=== PATIENT | male | born 1985 | race Caucasian/White ===

== ENCOUNTER 2023-06-02 14:22 | Outpatient (REF) | payer BC, SELFPAY ==
[2023-06-02 15:06] LABS: SARS-CoV-2 Ag NEGATIVE (NEGATIVE)
[2023-06-03 11:24] LABS: SARS-CoV-2 NAA DETECTED (NOT DETECTE)
== END 2023-06-02 14:23 | disposition home or self-care (01) ==
LOC: LAB 14:22
PROVIDERS: PCP Family Medicine; Visit Provider Family Medicine
DX: Z20.822 Contact with and (suspected) exposure to COVID-19 (principal); U07.1 COVID-19
CPT/HCPCS: 87635; 87811

== ENCOUNTER 2024-02-20 17:53 | Emergency (ER) | payer BC, SELFPAY ==
[2024-02-20 17:57] VITALS: BP 157/112; PULSE 75; TEMP 36.7; O2SAT 98; BMI 36.2
[2024-02-20 18:02] VITALS: BP 142/90
--- NOTE | 2024-02-20 18:08 | PC.NURSE ---
pt has bump on L side of cheek/face since friday. saw dr camara naresh and was prescribed doxy and cefdinir. pt states it's still not getting better and would like it to be lanced,. there is no head' or drainage on area. denies hitting head
--- OUTSIDE RECORDS SUMMARY | 2024-02-20 18:11 | XMS_ITS | CCD ---
Author Organization [facility] Care Team Providers Care Form Drafter Name Role Phone DR NOMI PAZ Primary Care Unavailable GERMÁN CARR Admitting Unavailable COSTA, DR NIX Consulting Unavailable GERMÁN CARR Attending Unavailable Dejuan Jin Consulting Unavailable AMIE, DR MOSHER Attending Unavailable AMIE, DR MOSHER Consulting Unavailable AMIE, DR MOSHER Primary Care Unavailable AMIE, DR MOSHER Admitting Unavailable AMIE, DR MOSHER Primary Care Unavailable SAM, DR FLORENCE Admitting Unavailable SAM, DR FLORENCE Attending Unavailable SAM, DR FLORENCE Consulting Unavailable MD Nomi Paz Primary Care Provider [phone] DO Margarito Medrano Emergency Provider NON STAFF Attending Provider Unavailable MD Nomi Paz Primary Care Provider [phone] DO Margarito Medrano Emergency Provider Carmen [facility] Amalia Kline Emergency Provider [phone] Amalia Morales Admitting Unavailable Amalia Morales Attending Unavailable Nomi Paz Primary Care Unavailable Celeste Anglin Admitting Unavailable Celeste Anglin Attending Unavailable Nomi Paz Primary Care Unavailable Medications Current Medications Medication Drug Class(es) Dates Sig (Normalized) Sig (Original) amoxicillin 875 mg / clavulanate 125 mg oral tablet (1 source) Penicillin-class Antibacterial Start: 09-19-2022 take 1 tablet by mouth twice daily Amoxicillin-Pot Clavulanate Active 1 TAB PO Twice daily September 19, 2022 12:00am clonazePAM 0.5 mg oral tablet (3 sources) Benzodiazepine Start: 07-09-2022 Clonazepam Active 0.5 MG PO As Directed July 09, 2022 1:00am FLUoxetine 10 mg oral capsule (3 sources) Serotonin Reuptake Inhibitor Start: 07-09-2022 take 10 mg by mouth once daily Fluoxetine Active 10 MG PO Daily July 09, 2022 1:00am Start: 07-09-2022 Fluoxetine Act efrem MG July 09, 2022 12:00am lisinopril 20 mg oral tablet (3 sources) Angiotensin Converting Enzyme Inhibitor Start: 07-09-2022 take 20 mg by mouth once daily Lisinopril Active 20 MG PO Daily July 09, 2022 1:00am Problems Active Problems Problem Classification Problem Date Documented Da te Episodic/Chronic Anxiety disorders (3 sources) Anxiety; Translations: [Anxiety disorder, unspecified] 07-09-2022 Chronic E Codes: Natural/environment (1 source) Dog bite - wound; Translations: [Bitten by dog, initial encounter] 09-19-2022 Episodic Other lower respiratory disease (1 source) Hypoxemia; Translations: [Hypoxemia] Onset: 09-10-2023 Episodic Unclassified (3 sources) CONTACT W/AND (SUSP) EXPOS COVID-19; Translations: [CONTACT W/AND (SUSP) EXPOS COVID-19] Onset: 02-15-2022 Unclassified (1 source) Puncture wound without foreign body of left forearm, initial encounter; Translations: [Puncture wound without foreign body of left forearm, initial encounter] Onset: 09-19-2022 Past or Other Problems Problem Classification Problem Date Documented Da te Episodic/Chronic Nonspecific chest pain (4 sources) Chest pain, unspecified; Translations: [Other chest pain] Onset: 06-09-2021 Episodic Other aftercare (1 source) 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; Translations: [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 DRUG THERAPY] Onset: 06-11-2021 Episodic Other circulatory disease (1 source) Elevated blood-pressure reading, without diagnosis of hypertension; Translations: [ELEVATED BP READING W/O DX HTN] Onset: 03-24-2021 Episodic Other nutritional; endocrine; and metabolic disorders (4 sources) Abnormal weight gain; Translations: [ABNORMAL WEIGHT GAIN] Onset: 03-16-2021 Episodic Unclassified (1 source) CONTACT W/AND (SUSP) EXPOS COVID-19; Translations: [CONTACT W/AND (SUSP) EXPOS COVID-19] Onset: 02-14-2022 Results Test Name Value Interpretation Reference Range Facility XR chest 2V*on 09-10-2023 XR chest 2V* [facility] Main [address] [address] XRay Report Signed Patient: Eduardo Yousif MR#: [id number] 984 : 1985 Acct:[id number] Age/Sex: 38 / M ADM Date: 09/10/23 Loc: XDUCLY Room: Type: [facility] CLI Attending Dr: Celeste TREVIÑO Copies to: KAMILA Prado Ordering Provider: KAMILA Prado Date of Service: 09/10/23 XR/XR chest 2V*: R09.02 - Hypoxemia PA AND LATERAL CHEST: CLINICAL HISTORY: Sore throat, fever and headache. Decreased pulse ox. COMPARISON: None There is no focal parenchymal consolidation, effusion or pneumothorax. The cardiac, hilar and mediastinal silhouettes are within normal limits. There is no vascular congestion. The visualized bony thorax is intact. There is minor endplate spurring. XR/XR chest 2V* IMPRESSION: NO ACUTE CARDIOPULMONARY ABNORMALITY. Impression dictated by: Jane Mac M.D.09/10/2023 10:54 AM Dictation Location: [place] [address] Transcribed By: [facility] 09/10/23 1054 Dictated By: Jane Mac MD 09/10/23 1052 Signed By: 09/10/23 1054 Normal [facility] XR forearm LT 2V*on 09-20-19 XR forearm LT 2V* [facility] Main [address] [address] XRay Report Signed Patient: Eduardo Yousif MR#: [id number] 984 : 1985 Acct:[id number] Age/Sex: 37 / M ADM Date: 09/19/22 Loc: ER Room: Type: [facility] ER Attending Dr: Copies to: FRANCES Castillo Ordering Provider: FRANCES Castillo Date of Service: 09/19/22 XR/XR forearm LT 2V*: Animal Bite 2 views of the left forearm plain film COMPARISON:None HISTORY:Dogbite of the left forearm ACUTE FINDINGS:None DEGENERATIVE CHANGE:Unremarkable SOFT TISSUE FINDINGS:Soft tissue swelling. No radiodense foreign body. JOINT EFFUSION:None POSTOP CHANGES:None BONY MINERALIZATION:Adequ ate XR/XR forearm LT 2V* IMPRESSION:Soft tissue swelling. Impression dictated by: Henry Encinas M.D.09/19/2022 3:43 PM Dictation Location: [facility]--03 Transcribed By: [facility] 09/19/22 154 Dictated By: Henry Encinas DO 09/19/22 154 Signed By: 09/19/22 154 [facility] XR hand LT min 3V*on 023 XR hand LT min 3V* [facility] [place] [address] XRay Report Signed Patient: Eduardo Yousif MR#: [id number] 984 : 1985 Acct:[id number] Age/Sex: 37 / M ADM Date: 09/19/22 Loc: ER Room: Type: [facility] ER Attending Dr: Copies to: FRANCES Castillo Ordering Provider: FRANCES Castillo Date of Service: 09/19/22 XR/XR hand LT min 3V*: Animal Bite 3 views of the left hand plain film COMPARISON:None HISTORY:Dog bite involving the left hand ACUTE FINDINGS:None DEGENERATIVE CHANGE:Unremarkable SOFT TISSUE FINDINGS:Unremarkabl e JOINT EFFUSION: None POSTOP CHANGES:None BONY MINERALIZATION:Adequ ate XR/XR hand LT min 3V* IMPRESSION:Unremarka ble exam Impression dictated by: Henry Encinas M.D.09/19/2022 3:42 PM Dictation Location: [facility]03 Transcribed By: [facility] 09/19/22 154 Dictated By: Henry Encinas DO 09/19/22 154 Signed By: 09/19/22 154 [facility] Covid-19 PCR (CVDTB)on 02-04 SARS-CoV-2 (COVID-19) RNA HELEN+probe Ql (Unsp spec) Not detected Normal NOT DETECTED [facility] Comment on above: Result Comment: This test is not yet approved or cleared by the [place] FDA. When there are no FDA-approved or cleared tests available, and other criteria are met, FDA can make tests available under an emergency access mechanism called an Emergency Use Authorization (EUA). The EUA for this test is supported by the [place] of Health and Human Service's (HHS's) declaration that circumstances exist to justify the emergency use of in vitro diagnostics for the detection and/or diagnosis of the virus that causes COVID-19. This EUA will remain in effect (meaning this test can be used) for the duration of the COVID-19 declaration justifying emergency of IVDs, unless it is terminated or revoked by FDA (after which the test may no longer be used). When diagnostic testing is negative, the possibility of a false negative should be considered in the context of a patient's recent exposures and the presence of clinical signs and symptoms consistent with SARS-CoV-2. Performed By: #### C VDTB #### [facility] [address] [place] [address] Dr. Staci Rodriguez CBC AUTO DIFFon 06-09-2021 BASO # 0.1 103/ul Normal 0.0-0.1 [facility] Comment on above: Performed By: #### C BC #### [facility] [address] [place] [address] Dr. Staci Rodriguez Basophils/100 WBC (Bld) 0.6 % Normal 0.2-2.[address] [facility] Comment on above: Performed By: #### C BC #### [facility] [address] [place] [address] Dr. Staci Rodriguez EO # 0.2 103/ul Normal 0.0-0.[address] [facility] Comment on above: Performed By: #### C BC #### [facility] [address] [place] [address] Dr. Staci Rodriguez Eosinophils/100 WBC (Bld) 1.4 % Normal 0.9-7.[address] [facility] Comment on above: Performed By: #### C BC #### [facility] [address] [place] [address] Dr. Staci Rodriguez Erythrocyte distribution width (RBC) [Ratio] 12.2 % Normal 11.0-15.0 [facility] Comment on above: Performed By: #### C BC #### [facility] [address] [place] [address] Dr. Staci Rodriguez Hematocrit (Bld) [Volume fraction] 43.2 % Normal 42.0-54.0 [facility] Comment on above: Performed By: #### C BC #### [facility] [address] [place] [address] Dr. Staci Rodriguez Hemoglobin (Bld) [Mass/Vol] 14.6 g/dL Normal 14.0-18.0 [facility] Comment on above: Performed By: #### C BC #### [facility] [address] [place] [address] Dr. Staci Rodriguez IG # 0.04 10e3/ul Critically high 0.00-0.03 [facility] Comment on above: Performed By: #### C BC #### [facility] [address] [place] [address] Dr. Staci Rodriguez IG % 0.3 % Normal 0.0-0.5 [facility] Comment on above: Performed By: #### C BC #### [facility] [address] [place] [address] Dr. Staci Rodriguez LYMPH # 4.3 103/ul Critically high 1.2-3.8 [facility] Comment on above: Performed By: #### C BC #### [facility] [address] [place] [address] Dr. Staci Rodriguez Lymphocytes/100 WBC (Bld) 34.1 % Normal 20.5-60.0 [facility] Comment on above: Performed By: #### C BC #### [facility] [address] [place] [address] Dr. Staci Rodriguez MANUAL DIFF REQ NO Normal [facility] Comment on above: Performed By: #### C BC #### [facility] [address] [place] [address] Dr. Staci Rodriguez MCH (RBC) [Entitic mass] 28.2 pg Normal 25.9-34.0 [facility] Comment on above: Performed By: #### C BC #### [facility] [address] [address] [address] Staci Rodriguez MCHC (RBC) [Mass/Vol] 33.8 g/dL Normal 29.9-35.2 [facility] Comment on above: Performed By: #### C BC #### [facility] [address] [place] [address] Dr. Staci Rodriguez MCV (RBC) [Entitic vol] 83.6 fL Normal 80.0-94.0 [facility] Comment on above: Performed By: #### C BC #### [facility] [address] [place] [address] Dr. Staci Rodriguez MONO # 1.2 103/ul Critically high 0.3-0.8 [facility] Comment on above: Performed By: #### C BC #### [facility] [address] [place] [address] Dr. Staci Rodriguez Monocytes/100 WBC (Bld) 9.3 % Normal 1.7-12.0 [facility] Comment on above: Performed By: #### C BC #### [facility] [address] [place] [address] Dr. Staci Rodriguez NEUT # 6.8 103/ul Critically high 1.4-6.5 The [facility] Comment on above: Performed By: #### C BC #### [facility] [address] [place] [address] Dr. Staci Rodriguez Neutrophils/100 WBC (Bld) 54.3 % Normal 43.0-75.[address] [facility] Comment on above: Performed By: #### C BC #### [facility] [address] [place] [address] Dr. Staci Rodriguez Platelet mean volume (Bld) [Entitic vol] 9.1 fL Critically low 9.5-13.5 [facility] Comment on above: Performed By: #### C BC #### [facility] [address] [place] [address] Dr. Staci Rodriguez PLT 309 103/ul Normal 150-450 [facility] Comment on above: Performed By: #### C BC #### [facility] [address] [place] [address] Dr. Staci Rodriguez RBC 5.17 106/ul Normal 4.70-6.10 [facility] Comment on above: Performed By: #### C BC #### [facility] [address] [place] [address] Dr. Staci Rodriguez WBC 12.6 103/ul Critically high 4.0-11.0 [facility] Comment on above: Performed By: #### C BC #### [facility] [address] [place] [address] Dr. Staci Rodriguez D-DIMERon 06-09-2021 D-DIMER <0.19 Normal 0.19-0.50 [facility] Comment on above: Performed By: #### D DIM #### [facility] [address] [place] [address] Dr. Staci Rodriguez D-DIMER COMMENTS SEE BELOW Normal [facility] Comment on above: Result Comment: Incr eases in D-Dimer concentration observed with thromboembolic events can be variable due to localization, size, and age of the thrombus. Therefore, a thromboembolic event cannot be diagnosed with certainty on the basis of the reference range. D-Dimers may also be elevated for a variety of disorders including: advanced age, , coronary disease, cancer, liver disease, infection, inflammation, hematoma, DIC, trauma, post-surgery, diabetes, thrombolytic or anticoagulant therapy, stress, and generalized hospitalization. Performed By: #### D DIM #### [facility] [address] [place] [address] Dr. Staci Rodriguez PROF CHEM 8 (BAS METB)on Anion gap [Moles/Vol] 12.2 mmol/L Normal [facility] Comment on above: Performed By: #### H OSCARPN, BMP #### [facility] [address] [place] [address] Dr. Staci Rodriguez Calcium [Mass/Vol] 9.5 mg/dL Normal 8.4-10.2 [facility] Comment on above: Performed By: #### H STROPN, BMP #### [facility] [address] [place] [address] [address] Staci Rodriguez Chloride [Moles/Vol] 102 mmol/L Normal 98-107 [facility] Comment on above: Performed By: #### H STROPN, BMP #### [facility] [address] [place] [address] [address] Staci Rodriguez CO2 [Moles/Vol] 28.1 mmol/L Normal 22.0-30.0 [facility] Comment on above: Performed By: #### H STROPN, BMP #### [facility] [address] [place] [address] [address] Staci Rodriguez Creatinine [Mass/Vol] 1.12 mg/dL Normal 0.66-1.25 [facility] Comment on above: Performed By: #### H STROPN, BMP #### [facility] [address] [address] [address] Staci Rodriguez EGFR-AF BAHAMIAN >60 Normal >=60 [facility] Comment on above: Performed By: #### H STROPN, BMP #### [facility] [address] [address] [address] Staci Rodriguez EGFR-NON AF BAHAMIAN >60 Normal >=60 [facility] Comment on above: Performed By: #### H STROPN, BMP #### [facility] [address] [address] [address] Staci Rodriguez Glucose [Mass/Vol] 92 mg/dL Normal 74-106 [facility] Comment on above: Performed By: #### H STROPN, BMP #### [facility] [address] [address] [address] Staci Rodriguez Potassium [Moles/Vol] 3.3 mmol/L Critically low 3.4-5.0 [facility] Comment on above: Performed By: #### H STROPN, BMP #### [facility] [address] [address] [address] Staci Rodriguez Sodium [Moles/Vol] 139 mmol/L Normal 137-145 [facility] Comment on above: Performed By: #### H STROPN, BMP #### [facility] [address] [address] [address] Staci Rodriguez Urea nitrogen [Mass/Vol] 10.0 mg/dL Normal 9.0-20.0 [facility] Comment on above: Performed By: #### H ANNAMARIA, BMP #### [facility] [address] [address] [address] Staci Rodriguez Urea nitrogen/Creatinine [Mass ratio] 8.9 mg/mg Normal [facility] Comment on above: Performed By: #### H ANNAMARIA, BMP #### [facility] [address] [address] [address] Staci Rodriguez TROPONIN, HIGH SENSITIVITYon 06-09-2021 HSTROP 38.4 pg/mL Normal 4.0-42.2 [facility] Comment on above: Result Comment: CUT- OFF POINTS HAVE BEEN ESTABLISHED BASED ON THE FOURTH UNIVERSAL DEFINITIONS OF MYOCARDIAL INFARCTION. THE UPPER REFERENCE LIMIT (URL) OF TROPONIN, DEFINED THE 99TH PERCENTILE OF cTnI DISTRIBUTION IN A REFERENCE POPULATION, HAS BEEN CONFIRMED THE DECISION THRESHOLD FOR [place] DIAGNOSIS. Performed By: #### H ANNAMARIA, BMP #### [facility] [address] [place] [address] [address] Staci Rodriguez GLYCOHEMOGLOBIN A1Con 2020 ADA RECOMMENDATION ADA THERAPEUTIC TARGET 6.0 - 7.0 ACTION SUGGESTED > 7.0 Normal [facility] Comment on above: Performed By: #### A 1C #### [facility] [address] [id number] Efraín Jane Glucose [Mass/Vol] 111 mg/dL Normal [facility] Comment on above: Performed By: #### A 1C #### [facility] [address] [id number] Efraín Jane HbA1c (Bld) [Mass fraction] 5.5 % Normal <=6.0 [facility] Comment on above: Performed By: #### A 1C #### [facility] [address] [id number] Efraín Lara LIPID PROFILEon 03-16-2021 CHOL-HDL RATIO NORM SEE BELOW Normal [facility] Comment on above: Result Comment: 3.3 - 4.4 LOW RISK 4.4 - 7.1 AVERAGE RISK 7.1 - 11.0 MODERATE RISK >11.0 HIGH RISK Performed By: #### T JEFFREY CMP, LIPID ####[facility] [address] [place], [place] [address]Yqpljn Jane Cholesterol [Mass/Vol] 219 mg/dL Critically high <=[address] [facility] Comment on above: Performed By: #### T JEFFREY CMP, LIPID ####[facility] [address] [place], [place] [address]Pfyggs Jane Cholesterol in HDL [Mass/Vol] 45 mg/dL Normal [facility] Comment on above: Performed By: #### T JEFFREY CMP, LIPID ####[facility] [address] [place], [place] [address]Sxsrpo Jane Cholesterol in LDL [Mass/Vol] 156.4 mg/dL Normal [facility] Comment on above: Performed By: #### T JEFFREY CMP, LIPID ####[facility] [address] [place], [place] [address]Erzubn Jane Cholesterol.total/Cho lesterol in HDL [Mass ratio] 4.9 {ratio} Normal [facility] Comment on above: Performed By: #### T JEFFREY CMP, LIPID ####[facility] [address] [place], [place] [address]Vyprly Jane HDL NORMAL > or = 60 mg/dl - LOW CARDIOVASCULAR RISK <40 mg/dl - HIGH CARDIOVASCULAR RISK Normal [facility] Comment on above: Performed By: #### T JEFFREY CMP, LIPID ####[facility] [address] [place], [place] [address]Lpccpq Jane LDL CALC NORMAL SEE BELOW Normal The [facility] Comment on above: Result Comment: <100 mg/dl OPTIMAL 100 - 129 mg/dl NEAR OR ABOVE OPTIMAL 130 - 159 mg/dl BORDERLINE HIGH 160 - 189 mg/dl HIGH >190 mg/dl VERY HIGH Performed By: #### T JEFFREY, CMP, LIPID ####[facility] [address] [place], [place] [address]Zlyqnw Jane Triglyceride [Mass/Vol] 88 mg/dL Normal <=150 [facility] Comment on above: Performed By: #### T SH, CMP, LIPID ####[facility] [address] [place], [place] [address]Dtbzeq Jane VLDL CALC 17.6 mg/dL Normal [facility] Comment on above: Performed By: #### T JEFFREY, CMP, LIPID ####[facility] [address] [place] [id number] Gamboaen PROF 14(COMP METB)on 021 Albumin [Mass/Vol] 4.3 g/dL Normal 3.5-5.0 [facility] Comment on above: Performed By: #### T JEFFREY CMP, LIPID #### [facility] [address] [phone] Efraín Jane Albumin/Globulin [Mass ratio] 1.0 {ratio} Normal [facility] Comment on above: Performed By: #### T JEFFREY CMP, LIPID #### [facility] [address] [phone] Efraín Jane ALP [Catalytic activity/Vol] 74 U/L Normal 38-126 [facility] Comment on above: Performed By: #### T JEFFREY CMP, LIPID #### [facility] [address] [place] [address] Efraín Jane ALT [Catalytic activity/Vol] 50 U/L Normal 21-72 [facility] Comment on above: Performed By: #### T JEFFREY, CMP, LIPID #### [facility] [address] [phone] Efraín Jane Anion gap [Moles/Vol] 14.0 mmol/L Normal [facility] Comment on above: Performed By: #### T SH, CMP, LIPID #### [facility] [address] [place], [place] [id number] Efraín Jane AST [Catalytic activity/Vol] 27 U/L Normal 17-59 [facility] Comment on above: Performed By: #### T SH, CMP, LIPID #### [facility] [address] [place], [place] [id number] Efraín Jane Bilirubin [Mass/Vol] 0.7 mg/dL Normal 0.2-1.[address] [facility] Comment on above: Performed By: #### T JEFFREY CMP, LIPID #### [facility] [address] [place] [address] Efraín Jane Calcium [Mass/Vol] 9.0 mg/dL Normal 8.4-10.2 [facility] Comment on above: Performed By: #### T JEFFREY, CMP, LIPID #### [facility] [address] [place] [address] Efraín Jane Chloride [Moles/Vol] 103 mmol/L Normal 98-[address] [facility] Comment on above: Performed By: #### T JEFFREY CMP, LIPID #### [facility] [address] [place] [address] Efraín Jane CO2 [Moles/Vol] 27.7 mmol/L Normal 22.0-30.0 [facility] Comment on above: Performed By: #### T JEFFREY, CMP, LIPID #### [facility] [address] [place] [address] Efraín Jane Creatinine [Mass/Vol] 1.15 mg/dL Normal 0.66-1.[address] [facility] Comment on above: Performed By: #### T JEFFREY CMP, LIPID #### [facility] [address] [place] [address] Efraín Jane EGFR-AF BAHAMIAN >60 Normal >=60 [facility] Comment on above: Performed By: #### T JEFFREY, CMP, LIPID #### [facility] [address] [place] [address] Efraín Jane EGFR-NON AF BAHAMIAN >60 Normal >=[address] [facility] Comment on above: Performed By: #### T JEFFREY, CMP, LIPID #### [facility] [address] [place] [address] Efraín Jane Globulin (S) [Mass/Vol] 4.2 g/dL Normal [facility] [facility] Comment on above: Performed By: #### T SH, CMP, LIPID #### [facility] [address] [place] [address] Efraín Jane Glucose [Mass/Vol] 86 mg/dL Normal 74-106 [facility] Comment on above: Performed By: #### T JEFFREY CMP, LIPID #### [facility] [address] [place] [address] Efraín Jane Potassium [Moles/Vol] 3.7 mmol/L Normal 3.4-5.0 [facility] Comment on above: Performed By: #### T JEFFREY CMP, LIPID #### [facility] [address] [place] [address] Efraín Jane Protein [Mass/Vol] 8.5 g/dL Critically high 6.1-8.2 [facility] Comment on above: Performed By: #### T JEFFREY CMP, LIPID #### [facility] [address] [place] [address] Efraín Jane Sodium [Moles/Vol] 141 mmol/L Normal 137-145 [facility] Comment on above: Performed By: #### T JEFFREY CMP, LIPID #### [facility] [address] [place] [address] Efraín Jane Urea nitrogen [Mass/Vol] 16.0 mg/dL Normal 9.0-20.0 [facility] Comment on above: Performed By: #### T JEFFREY CMP, LIPID #### [facility] [address] [place] [address] Efraín Jane Urea nitrogen/Creatinine [Mass ratio] 13.9 mg/mg Normal [facility] Comment on above: Performed By: #### T JEFFREY CMP, LIPID #### [facility] [address] [place] [address] Efraín Jane TSHon 03-16-2021 TSH 0.650 uIU/mL Normal 0.470-4.680 [facility] Comment on above: Performed By: #### T JEFFREY CMP, LIPID #### [facility] [address] [place] [address] Efraín Jane TSH RANGE SEE BELOW Normal [facility] Comment on above: Result Comment: <0.3 4 UIU/ml HYPERTHYROID 0.34-5.60 UIU/ml EUTHYROID >5.60 UIU/ml HYPOTHYROID Performed By: #### T SH, CMP, LIPID #### [facility] [address] [place] [address] Efraín Jane UA RANDOMon 03-16-2021 Bilirubin Ql (U) Negative Normal NEGATIVE [facility] Comment on above: Performed By: #### U A #### [facility] [address] [place] [address] Efraín Jane Clarity (U) CLEAR Normal CLEAR [facility] Comment on above: Performed By: #### U A #### [facility] [address] [place] [address] Efraín Jane Color (U) YELLOW Normal YELLOW [facility] Comment on above: Performed By: #### U A #### [facility] [address] [place] [address] Efraín Jane Glucose Ql (U) Negative Normal NEGATIVE [facility] Comment on above: Performed By: #### U A #### [facility] [address] [place] [address] Efraín Jane Hemoglobin Ql (U) TRACE-LYSED Abnormal NEGATIVE [facility] Comment on above: Performed By: #### U A #### [facility] [address] [place] [address] Efraín Jane Ketones Ql (U) TRACE Abnormal NEGATIVE [facility] Comment on above: Performed By: #### U A #### [facility] [address] [place] [address] Efraín Jane LEUKOCYTES Negative Normal NEGATIVE [facility] Comment on above: Performed By: #### U A #### [facility] [address] [place] [address] Efraín Jane Nitrite Ql (U) Negative Normal NEGATIVE [facility] Comment on above: Performed By: #### U A #### [facility] [address] [place] [address] Efraín Jane pH (U) 6.0 [pH] Normal 5-[address] [facility] Comment on above: Performed By: #### U A #### [facility] [address] [place], [place] [id number] Efraín Lara SPEC GRAVITY >=1.030 Abnormal 1.005-<=1.025 The [facility] Comment on above: Performed By: #### U A #### [facility] [address] [address] Efraín Lara UA PROTEIN Negative Normal NEGATIVE/ TRACE [facility] Comment on above: Performed By: #### U A #### [facility] [address] [id number] Efraín Lara Urobilinogen Qn (U) 0.2 {[place]'U}/dL Normal 0.2 - 1. 0 [facility] Comment on above: Performed By: #### U A #### [facility] [address] [place] [address] Efraín Lara Release of Informationon Release of Information [id number] [facility] Coding Summaryon 01-18-2019 Coding Summary CODING DATE: 01/18/2019 [place] STATUS: Home PAYOR: Richard Horan ADMIT DX: REASON FOR VISIT DX: R11.2 Nausea with vomiting, unspecified R19.7 Diarrhea, unspecified FINAL DX: PRINCIPAL: R11.2 Nausea with vomiting, unspecified SECONDARY: D72.829 Elevated white blood cell count, unspecified R42 Dizziness and giddiness R19.7 Diarrhea, unspecified PROCEDURES DOCTOR NAME DATE NOTE: The code number assigned matches the documented diagnosis and / or procedure in the patient's chart. However, the narrative phrase printed from the coding software may appear abbreviated, or result in slightly different terminology. Coded By: Jose A Barr Date Saved: 01/18/2019 12:05 pm [facility] Coding Summary CODING DATE: 01/18/2019 [place] STATUS: Home PAYOR: Richard Cross APC DESCRIPTION 5733 Level 3 Minor Procedures ADMIT DX: REASON FOR VISIT DX: R11.2 Nausea with vomiting, unspecified R19.7 Diarrhea, unspecified FINAL DX: PRINCIPAL: R11.2 Nausea with vomiting, unspecified SECONDARY: D72.829 Elevated white blood cell count, unspecified R42 Dizziness and giddiness R19.7 Diarrhea, unspecified PYMT PROC APC STAT DESCRIPTION DOCTOR NAME DATE NOTE: The code number assigned matches the documented diagnosis and / or procedure in the patient's chart. However, the narrative phrase printed from the coding software may appear abbreviated, or result in slightly different terminology. Coded By: Bharath Barr' Date Saved: 01/18/2019 12:01 pm Normal [facility] CBC w/ Auto Diffon 9 Erythrocyte distribution width (RBC) [Ratio] 13.3 % Normal 11.5-15.0 [facility] Comment on above: Performed By: #### 1 [id number], [id number], 9517938, 1083566, 419395714, [id number] #### [facility] (DEFAULT) [address] [place] [address] 89983 Hematocrit (Bld) [Volume fraction] 45.2 % Normal 34.8-51.9 [facility] Comment on above: Performed By: #### 1 [id number], [id number], 5415279, 0353356, 848710774, [id number] #### [facility] (DEFAULT) [address] [place] [address] 98656 Hemoglobin (Bld) [Mass/Vol] 15.8 g/dL Normal 11.8-17.7 [facility] Comment on above: Performed By: #### 1 [id number], [id number], 1151986, 3269967, 925990776, [id number] #### [facility] (DEFAULT) [address] [place] [address] 24811 Man Diff? Manual Normal [facility] Comment on above: Performed By: #### 1 [id number], [id number], 5517697, 7451283, 259887119, [id number] #### [facility] (DEFAULT) [address] [place] [address] 31002 MCH (RBC) [Entitic mass] 28 pg Normal 24-34 [facility] Comment on above: Performed By: #### 1 [id number], [id number], 0549513, 8807516, 180523522, 8061346049 #### [facility] (DEFAULT) [address] [place] [address] 09008 MCHC (RBC) [Mass/Vol] 35 g/dL Normal 26-37 [facility] Comment on above: Performed By: #### 1 [id number], [id number], 6320288, 9573578, 625121555, [id number] #### [facility] (DEFAULT) [address] [place] [address] MCV (RBC) [Entitic vol] 80 fL Low 81-100 [facility] Comment on above: Performed By: #### 1 [id number], [id number], 5610750, 6897155, 228294295, [id number] #### [facility] (DEFAULT) [address] [place] [address] Platelet mean volume (Bld) [Entitic vol] 9.1 fL Normal 6.3-10.2 [facility] Comment on above: Performed By: #### 1 [id number], 4771352733, 9550744, 3612783, 605368649, 5271223572 #### [facility] (DEFAULT) [address] [place] [address] Platelets (Bld) [#/Vol] 320 x10 Normal 138-427 [facility] Comment on above: Performed By: #### 1 [id number], 0585253268, 6949464, 6780781, 319858826, 8210682349 #### [facility] (DEFAULT) [address] [place] [address] RBC (Bld) [#/Vol] 5.68 x10 High 3.70-5.30 [facility] Comment on above: Performed By: #### 1 [id number], 3644305954, 2413422, 0044653, 191076844, 4634554099 #### [facility] (DEFAULT) [address] [place] [address] 22891 WBC (Bld) [#/Vol] 28.5 x10 [facility] Comment on above: Performed By: #### 1 [id number], 7994469484, 5570703, 2938557, 635684537, 7477720011 #### [facility] (DEFAULT) [address] [place], [place] [address] CMP Standardon 01-12-2019 eGFR Non AA >60 [facility] Comment on above: Performed By: #### 1 [id number], 7172681611, 1966934, 3602630, 146494316, 4067629150 #### [facility] (DEFAULT) [address] [place] [address] eGFR AA >60 [facility] Comment on above: Result Comment: Coloring Checker davida Kidney disease could be indicated at eGFRs of less than 60 ml/min/1.73m2. Kidney Failure is indicated at less than 15 ml/min/1.73m2 Performed By: #### 1 [id number], 1265802516, 1519833, 7124522, 900139309, 6638897286 #### [facility] (DEFAULT) [address] [place] [address] 24579 Albumin [Mass/Vol] 4.9 g/dL Normal 3.5-5.0 [facility] Comment on above: Performed By: #### 1 [id number], 5213192508, 2342261, 5924610, 827077894, 1623069166 #### [facility] (DEFAULT) [address] [place] [address] 28728 Albumin/Globulin [Mass ratio] 1.2 {ratio} Low 1.4-2.6 [facility] Comment on above: Performed By: #### 1 [id number], 3861589902, 6127347, 4553829, 320246761, 7398256752 #### [facility] (DEFAULT) [address] [place] [address] 73563 Alk Phos 75 IU/L Normal 32-91 [facility] Comment on above: Performed By: #### 1 [id number], 6527217835, 5371112, 9982170, 042266183, 5271672927 #### [facility] (DEFAULT) [address] [place] [address] 12448 ALT/SGPT 37.0 IU/L Normal 17.0-63.0 [facility] Comment on above: Performed By: #### 1 [id number], 9795906611, 1589650, 6494062, 748659859, 1583040520 #### [facility] (DEFAULT) [address] [place] [address] 29874 Anion gap [Moles/Vol] 8.0 mmol/L Normal 5.0-19.0 [facility] Comment on above: Performed By: #### 1 [id number], 4885193645, 8068477, 3754644, 962221518, 3179215351 #### [facility] (DEFAULT) [address] [place] [address] 08509 AST/SGOT 24 IU/L Normal 15-41 [facility] Comment on above: Performed By: #### 1 [id number], 8980705787, 6345250, 1688931, 281756280, 9977859816 #### [facility] (DEFAULT) [address] [place] [address] 28975 Bili Total <0.1 Low 0.3-1.2 [facility] Comment on above: Performed By: #### 1 [id number], 1031714233, 6807060, 9965807, 567851914, 2026529157 #### [facility] (DEFAULT) [address] [place] [address] 88763 Calcium [Mass/Vol] 9.3 mg/dL Normal 8.9-10.3 [facility] Comment on above: Performed By: #### 1 [id number], 3344039524, 3057908, 9543206, 669832399, 6936715454 #### [facility] (DEFAULT) [address] [place] [address] 93353 Chloride [Moles/Vol] 111 mmol/L Normal 101-111 [facility] Comment on above: Performed By: #### 1 [id number], 3884130802, 5457627, 7625113, 427746541, 9635386687 #### [facility] (DEFAULT) [address] [place] [address] 07213 CO2 [Moles/Vol] 24 mmol/L Normal 21-32 [facility] Comment on above: Performed By: #### 1 [id number], 7666271031, 7837766, 0455673, 989649599, 0110262735 #### [facility] (DEFAULT) [address] [place] [address] Creatinine [Mass/Vol] 1.21 mg/dL Normal 0.90-1.30 [facility] Comment on above: Performed By: #### 1 [id number], 6152043631, 5930983, 9488279, 711510883, 1314982436 #### [facility] (DEFAULT) [address] [place] [address] 96312 Globulin (S) [Mass/Vol] 4.1 g/dL Normal 1.5-4.3 [facility] Comment on above: Performed By: #### 1 [id number], 7716980083, 9545683, 5327369, 070747537, 3897825046 #### [facility] (DEFAULT) [address] [place] [address] Glucose [Mass/Vol] 121.0 mg/dL High 74.0-118.[address] [facility] Comment on above: Performed By: #### 1 [id number], 3727549737, 6609153, 8178105, 407748437, 5216206312 #### [facility] (DEFAULT) [address] [place] [address] 95847 Osmolality [Osmolality] 279 mOsm/L [facility] Comment on above: Performed By: #### 1 [id number], 1190841723, 1179985, 4738586, 805958601, 2145481669 #### [facility] (DEFAULT) [address] [place] [address] 92515 Potassium [Moles/Vol] 4.3 mmol/L Normal 3.6-5.1 [facility] Comment on above: Performed By: #### 1 [id number], 4227124033, 8102248, 3122954, 171203276, 2735831442 #### [facility] (DEFAULT) [address] [place] [address] 73933 Protein [Mass/Vol] 9.0 g/dL High 6.5-8.1 [facility] Comment on above: Performed By: #### 1 [id number], 6079929988, 6688494, 3001459, 247360219, 1296712939 #### [facility] (DEFAULT) [address] [place] [address] 46860 Sodium [Moles/Vol] 139.0 mmol/L Normal 136.0-144.0 [facility] Comment on above: Performed By: #### 1 [id number], 2893873239, 2874482, 4606060, 863793415, 3190026650 #### [facility] (DEFAULT) [address] [place] [address] 84097 Urea nitrogen [Mass/Vol] 14 mg/dL Normal 8-26 [facility] Comment on above: Performed By: #### 1 [id number], 5208495284, 6472901, 9416788, 932861757, 6667218632 #### [facility] (DEFAULT) [address] [place] [address] 60375 Urea nitrogen/Creatinine [Mass ratio] 12.0 mg/mg Normal 4.6-16.2 [facility] Comment on above: Performed By: #### 1 [id number], 7923521568, 1052930, 8525329, 612631715, 5615494472 #### [facility] (DEFAULT) [address] [place] [address] 55066 ED Clinical Summaryon 2018 ED Clinical Summary [facility] - Emergency Department [address] [place] [address]327 ED Clinical Summary PERSON INFORMATION Name: PRAVEEN YOUSIF Age: 33 Years Sex: MALE : [birth year] MRN: Acct#: Visit Reason: Diarrhea; Emesis; VOMITING, NAUSEA Arrival: 01/12/19 10:49:00 Discharge: 01/12/19 13:40:00 LOS: 000 02:51 Check In: 01/12/19 10:49:00 Checkout:01/12/19 13:40:00 Address: [place] [address] PCP: NOMI PAZ PROVIDER INFORMATION Provider Role Assigned Unassigned Ernst DA SILVA, Ju ED Nurse 01/12/19 10:50:54 John EDGE, Abebe Martel ED PA 01/12/19 10:57:08 01/12/19 10:59:14 Kole Dodd ED PA 01/12/19 10:59:35 VITALS INFORMATION Vital Sign Triage Latest Temperature Tympanic Temperature Temporal Artery Pulse Rate 89 bpm 89 bpm O2 Sat 100 % 100 % Respiratory Rate 18 br/min 18 br/min Blood Pressure 163 mmHg/108 mmHg 163 mmHg/108 mmHg MEDICAL INFORMATION Medications Given: Medication Dose Route ondansetron 4 mg IV Push sodium chloride 10 mL IV Flush Allergy Information: No known allergies PHYSICIAN DOCUMENTATION DISCHARGE INFORMATION: Discharge Disposition: Home Discharge Location: Home PATIENT EDUCATION INFORMATION Instructions: Diarrhea, Adult; Nausea and Vomiting, Adult Follow-Up: With: Address: When: NOMI AMIE [address] [facility] [address] [id number] Business (1) Within 3 to 5 days Comments: Diagnosis is history of nausea vomiting and diarrhea without abdominal discomfort, elevated white blood cell count. He reports going to a job location, and feeling nauseous on the way there, and having episodes of nausea and vomiting, and diarrhea. You felt lightheaded, may have a component of mild dehydration, the EMS gave you a liter of IV fluids, we gave you almost 1500 cc, and the lightheadedness resolved, We provided you with medication help with nausea, your blood work is overall negative for acute process requiring intervention in regards to your electrolytes, your CBC has normal blood count, white count was elevated, but most likely from the nausea and vomiting experienced prior to coming to the emergency department. You're not having any fevers, no abdominal pain. urinalysis is overall negative. Keep hydrated. Provided you with a prescription for medication help with nausea take as prescribed. Eat light, over the next 24-48 hours, soups, Jell-O, avoid heavy meals. Follow-up with your own primary care provider in the next 3-5 days, Return to the emergency room for worsening symptoms or concerns, onset of abdominal pain, worsening nausea or vomiting, spiking fevers, acute shortness of breath or chest pain, or any questions DIAGNOSIS: Diarrhea; Leukocytosis; Lightheadedness; Nausea and vomiting Patient Understands: Yes - Patient/family/careg iver verbalizes understanding of instructions given Comment: Normal [facility] ED Note - Physicianon 2018 ED Note - Physician Patient: PRAVEEN YOUSIF Age: 33 years Sex: MALE : 87 Associated Diagnoses: Nausea and vomiting; Lightheadedness; Diarrhea; Leukocytosis Author: Kole Dodd Basic Information Time seen: Date & time 01/12/19 11:00:00. History source: Patient. Arrival mode: Ambulance. History limitation: None. History of Present Illness Patient is a 33-year-old male with no medical history, who presents to the emergency department with an episode of nausea vomiting, followed by diarrhea, patient brought in by EMS, patient seen in room 7. 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 He continued to have nausea, EMS was activated presents now for evaluation. Patient complains of nausea, but denies abdominal pain, shortness of breath, chest pain, dizziness, double vision or blurry vision, hematuria or dysuria. There is no syncope. Review of Systems Constitutional symptoms: No fever, no chills. Skin symptoms: No rash, no abrasions. Eye symptoms: No discharge, no diplopia, no blurred vision. Respiratory symptoms: No shortness of breath, Cardiovascular symptoms: No chest pain, Gastrointestinal symptoms: Negative except as documented in HPI. Genitourinary symptoms: Negative except as documented in HPI. Health Status Allergies: No allergies have been recorded.. Past Medical/ Family/ Social History Medical history: No active or resolved past medical history items have been selected or recorded.. Surgical history: No active procedure history items have been selected or recorded.. Family history: No family history items have been selected or recorded.. Social history: Social & Psychosocial Habits No Data Available . Problem list: No qualifying data available . Physical Examination General: Alert, no acute distress. Vital Signs Skin: Warm, dry. Head: Normocephalic, atraumatic. Neck: Supple, trachea midline. Eye: Extraocular movements are intact, normal conjunctiva. Ears, nose, mouth and throat: Patient's mouth is dry. Cardiovascular: +S1, S2 Regular. Respiratory: Lungs are clear to auscultation, respirations are non-labored, breath sounds are equal. Gastrointestinal: Patient's abdomen is auscultated,there are bowel sounds present throughout, there is no guarding, there is no rebound. There is no pulsatile mass palpated, no abdominal bruit auscultated. Back: No CVA tenderness bilaterally. Neurological: Alert and oriented to person, place, time, and situation, No focal neurological deficit observed. Psychiatric: Cooperative. Medical Decision Making Differential Diagnosis: Nausea, vomiting, diarrhea. Orders Launch Orders Laboratory: Troponin I (Order): Blood, Stat collect, 01/12/19 11:04 EDT, Lab Collect CMP Standard (Order): Blood, Stat collect, 01/12/19 11:03 EDT, Lab Collect CBC w/ Auto Diff (Order): Blood, Stat collect, 01/12/19 11:03 EDT, Lab Collect Pharmacy: Zofran (Order): 4 mg, IV Push, Once Sodium Chloride 0.9% intravenous solution (Order): 250 mL, 999 mL/hr, IV, NOW Cardiovascular: EKG (Order): 01/12/19 11:03 EDT, Abnormal EKG, No, Launch Orders Laboratory: Urinalysis with Culture, if indicated Standard (Order): Urine, Routine collect, 01/12/19 11:45 EDT, Nurse collect, Launch Orders Laboratory: Troponin I (Order): Blood, Stat collect, 01/12/19 12:16 EDT, Lab Collect. Electrocardiogram: EKG from 01/12/19, shows sinus rhythm, ventricular rate 93/m, purulent 73 ms, QRS duration is 96, QRS inversion in lead 3 the T wave, but otherwise no acute ST segment elevation or depression that I can appreciate. Results review: Lab results : Lab Flowsheet 01/12/19 11:04 EDT Sodium Level 139.0 mmol/L Potassium Level 4.3 mmol/L Chloride Level 111 mmol/L CO2 24 mmol/L Anion Gap 8.0 mmol/L Glucose Level 121.0 mg/dL HI BUN 14 mg/dL Creatinine Level 1.21 mg/dL BUN/Creat Ratio 12.0 eGFR AA >60 mL/min/1.73m2 NA eGFR Non AA >60 mL/min/1.73m2 NA Calcium Level 9.3 mg/dL Bili Total <0.1 mg/dL LOW Alk Phos 75 IU/L AST/SGOT 24 IU/L ALT/SGPT 37.0 IU/L Protein Total 9.0 gm/dL HI Albumin Level 4.9 gm/dL Globulin 4.1 gm/dL A/G Ratio 1.2 LOW Osmolality 279 mOsm/L NA Troponin-I <0.03 ng/mL WBC 28.5 x103/mcL HI RBC 5.68 x106/mcL HI Hgb 15.8 gm/dL Hct 45.2 % MCV 80 fL LOW MCH 28 pg MCHC 35 gm/dL RDW 13.3 % Platelet 320 x103/mcL MPV 9.1 fL Lymph Man 7 % LOW Monocyte Man 14 % HI Segs Man 69 % Eos Man 0 % Basophil Man 0 % React Lymph Man 1 % NA Band Man 9 % HI Tube Collected Yes Tube Collected Yes , Lab results : Lab Flowsheet 01/12/19 12:48 EDT UA Color YELLOW UA Clarity SL CLOUDY UA Glucose NEGATIVE UA Ketones NEGATIVE UA Spec Grav >=1.030 UA Blood NEGATIVE UA pH 5.5 UA Protein TRACE mg/dL UA Urobilinogen 0.2 mg/dL UA Nitrite NEGATIVE UA Leuk Est NEGATIVE UA Bilirubin NEGATIVE Urine Source Clean Catch Micro? Indicated Culture? No UA WBC 0-2 UA RBC None Seen UA Bacteria Rare UA CA Ox Crystal 4+ , Lab results : Lab Flowsheet 01/12/19 12:35 EDT Troponin-I <0.03 ng/mL , Lab results : Lab Flowsheet 01/12/19 10:56 EDT Blood Glucose, Capillary. POC 118 mg/dL . Reexamination/ Reevaluation Patient is a 33-year-old male who presents to the emergency department for evaluation of nausea and vomiting, and one episode of diarrhea. From history, patient started feeling nauseous on the way to job location, and had episode of vomiting, ?2, and one episode of diarrhea. There is no blood in the vomit or stool. He is not having abdominal pain. Patient is not dizzy or lightheaded, but is feeling nauseous. We'll order 250 cc bolus of fluids since he received almost a liter on the way here, we'll order a CBC and CMP, troponin. Patient's EKG shows sinus rhythm, without obvious ST segment elevation or depression. Patient's blood sugar was checked, 118. Nursing reports the patient's blood pressure dropped down to upper 80s, and patient stated he was lightheaded, blood pressure was reevaluated in regards to cup, is rechecked, patient is a 112 systolically. We'll evaluate urine. Patient's troponin comes back within normal limits. Patient's CBC comes back with a white count of 28.5 thousand, normal hemoglobin and hematocrit, suspect elevated secondary to nausea and vomiting episodes. Patient CMP comes back with a mildly elevated glucose 121, but otherwise no other acute abnormality requiring intervention. Patient seen at 1:05 PM, he states he is feeling better, his blood pressures maintained in the 112-120 range, his heart rate is in the 90s, he is not lightheaded, dizzy, and has no nausea or vomiting complaints. We will wait percent and troponin if this is negative we will discharge him, he can follow up with primary care provider in the next 3-5 days for reevaluation. We discussed reasons return him to get verbal understanding and agreement. Patient's second troponin comes back within normal limits. Impression and Plan Diagnosis Nausea and vomiting (BDI05-EL R11.2, Discharge, Medical) Leukocytosis (CUV48-TM D72.829, Discharge, Medical) Lightheadedness (SKP28-QL R42, Discharge, Medical) Diarrhea (DQY76-ZH R19.7, Discharge, Medical) Plan Condition: Improved, Stable. Disposition: Discharged: Time 01/12/19 13:27:00, to home. Prescriptions: [facility] prescriptions Pharmacy: Zofran ODT 4 mg oral tablet, disintegrating (Prescribe): 4 mg = 1 tab(s), PO, q8hr, PRN: as needed for nausea/vomiting, 15 tab(s), 0 Refill(s). Patient was given the following educational materials: Nausea and Vomiting, Adult, Diarrhea, Adult, Diarrhea, Adult, Nausea and Vomiting, Adult, Diarrhea, Adult, Nausea and Vomiting, Adult. Follow up with: NOMI PAZ Within 3 to 5 days Diagnosis is history of nausea vomiting and diarrhea without abdominal discomfort, elevated white blood cell count. He reports going to a job location, and feeling nauseous on the way there, and having episodes of nausea and vomiting, and diarrhea. You felt lightheaded, may have a component of mild dehydration, the EMS gave you a liter of IV fluids, we gave you almost 1500 cc, and the lightheadedness resolved, We provided you with medication help with nausea, your blood work is overall negative for acute process requiring intervention in regards to your electrolytes, your CBC has normal blood count, white count was elevated, but most likely from the nausea and vomiting experienced prior to coming to the emergency department. You're not having any fevers, no abdominal pain. urinalysis is overall negative. Keep hydrated. Provided you with a prescription for medication help with nausea take as prescribed. Eat light, over the next 24-48 hours, soups, Jell-O, avoid heavy meals. Follow-up with your own primary care provider in the next 3-5 days, Return to the emergency room for worsening symptoms or concerns, onset of abdominal pain, worsening nausea or vomiting, spiking fevers, acute shortness of breath or chest pain, or any questions . Counseled: Patient, Family, Regarding diagnosis, Regarding diagnostic results, Regarding treatment plan, Regarding prescription, Patient indicated understanding of instructions. [Electronically Signed on: 01/12/2019 14:06 EDT] Kole Dodd [Verified on: 01/12/2019 14:06 EDT] Kole Dodd [facility] ED Note - Physician Patient: PRAVEEN YOUSIF Age: 33 years Sex: MALE : 87 Associated Diagnoses: None Author: Abebe Lopez PA-C Basic Information Time seen: Date & time 01/12/19 10:57:00. History source: Patient. Arrival mode: Private vehicle. History limitation: None. Abebe Lopez PA-C [facility] ED Note-Nursingon 01-12-2019 ED Note-Nursing [id number] [facility] ED Note-Nursing Patient arrives by EMS after a episode of Nausea/Vomiting X3 and diarrhea raound 0930. Friends stated that he looked pale and diaphoretic and called EMS. Patient states no abdominal pain. Not nauseated at this time. [facility] ED Patient Education Noteon 01-12-2019 ED Patient Education Note Education Materials Gastroenterology Diarrhea, Adult Diarrhea is frequent loose and watery bowel movements. Diarrhea can make you feel weak and cause you to become dehydrated. Dehydration can make you tired and thirsty, cause you to have a dry mouth, and decrease how often you urinate. Diarrhea typically lasts 2?3 days. However, it can last longer if it is a sign of something more serious. It is important to treat your diarrhea as told by your health care provider. Follow these instructions at home: Eating and drinking Follow these recommendations as told by your health care provider: ? Take an oral rehydration solution (ORS). This is a drink that is sold at pharmacies and retail stores. ? Drink clear fluids, such as water, ice chips, diluted fruit juice, and low-calorie sports drinks. ? Eat bland, piet-rc-ropfvc foods in small amounts as you are able. These foods include bananas, applesauce, rice, lean meats, toast, and crackers. ? Avoid drinking fluids that contain a lot of sugar or caffeine, such as energy drinks, sports drinks, and soda. ? Avoid alcohol. ? Avoid spicy or fatty foods. General instructions ? Drink enough fluid to keep your urine clear or pale yellow. ? Wash your hands often. If soap and water are not available, use hand mechanical inspector. ? Make sure that all people in your household wash their hands well and often. ? Take odlj-pcm-xqfapdg and prescription medicines only as told by your health care provider. ? Rest at home while you recover. ? Watch your condition for any changes. ? Take a warm bath to relieve any burning or pain from frequent diarrhea episodes. ? Keep all follow-up visits as told by your health care provider. This is important. Contact a health care provider if: ? You have a fever. ? Your diarrhea gets worse. ? You have new symptoms. ? You cannot keep fluids down. ? You feel light-headed or dizzy. ? You have a headache ? You have muscle cramps. Get help right away if: ? You have chest pain. ? You feel extremely weak or you faint. ? You have bloody or black stools or stools that look like tar. ? You have severe pain, cramping, or bloating in your abdomen. ? You have trouble breathing or you are breathing very quickly. ? Your heart is beating very quickly. ? Your skin feels cold and clammy. ? You feel confused. ? You have signs of dehydration, such as: ? Dark urine, very little urine, or no urine. ? Cracked lips. ? Dry mouth. ? Sunken eyes. ? Sleepiness. ? Weakness. This information is not intended to replace advice given to you by your health care provider. Make sure you discuss any questions you have with your health care provider. Document Released: 06/13/2003 Document Revised: 02/04/2018 Document Reviewed: 02/27/2016 [employer] Patient Education ? 2019 [employer] Nausea and Vomiting, Adult Nausea is the feeling that you have an upset stomach or have to vomit. As nausea gets worse, it can lead to vomiting. Vomiting occurs when stomach contents are thrown up and out of the mouth. Vomiting can make you feel weak and cause you to become dehydrated. Dehydration can make you tired and thirsty, cause you to have a dry mouth, and decrease how often you urinate. Older adults and people with other diseases or a weak immune system are at higher risk for dehydration. It is important to treat your nausea and vomiting as told by your health care provider. Follow these instructions at home: Follow instructions from your health care provider about how to care for yourself at home. Eating and drinking Follow these recommendations as told by your health care provider: ? Take an oral rehydration solution (ORS). This is a drink that is sold at pharmacies and retail stores. ? Drink clear fluids in small amounts as you are able. Clear fluids include water, ice chips, diluted fruit juice, and low-calorie sports drinks. ? Eat bland, fdig-ju-jnslcu foods in small amounts as you are able. These foods include bananas, applesauce, rice, lean meats, toast, and crackers. ? Avoid fluids that contain a lot of sugar or caffeine, such as energy drinks, sports drinks, and soda. ? Avoid alcohol. ? Avoid spicy or fatty foods. General instructions ? Drink enough fluid to keep your urine clear or pale yellow. ? Wash your hands often. If soap and water are not available, use hand mechanical inspector. ? Make sure that all people in your household wash their hands well and often. ? Take lpoa-emo-koiwydg and prescription medicines only as told by your health care provider. ? Rest at home while you recover. ? Watch your condition for any changes. ? Breathe slowly and deeply when you feel nauseated. ? Keep all follow-up visits as told by your health care provider. This is important. Contact a health care provider if: ? You have a fever. ? You cannot keep fluids down. ? Your symptoms get worse. ? You have new symptoms. ? Your nausea does not go away after two days. ? You feel light-headed or dizzy. ? You have a headache. ? You have muscle cramps. Get help right away if: ? You have pain in your chest, neck, arm, or jaw. ? You feel extremely weak or you faint. ? You have persistent vomiting. ? You see blood in your vomit. ? Your vomit looks like black coffee grounds. ? You have bloody or black stools or stools that look like tar. ? You have a severe headache, a stiff neck, or both. ? You have a rash. ? You have severe pain, cramping, or bloating in your abdomen. ? You have trouble breathing or you are breathing very quickly. ? Your heart is beating very quickly. ? Your skin feels cold and clammy. ? You feel confused. ? You have pain when you urinate. ? You have signs of dehydration, such as: ? Dark urine, very little urine, or no urine. ? Cracked lips. ? Dry mouth. ? Sunken eyes. ? Sleepiness. ? Weakness. These symptoms may represent a serious problem that is an emergency. Do not wait to see if the symptoms will go away. Get medical help right away. Call your local emergency services (911 in the [place] Do not drive yourself to the hospital. This information is not intended to replace advice given to you by your health care provider. Make sure you discuss any questions you have with your health care provider. Document Released: 06/23/2006 Document Revised: 11/25/2016 Document Reviewed: 02/27/2016 [employer] Patient Education ? 2019 [employer]. Normal [facility] ED Patient Summaryon 019 ED Patient Summary [facility] - Emergency Department [address] [place], [place] [id number] PATIENT DISCHARGE INSTRUCTIONS Patient Information Name: PRAVEEN YOUSIF Age: 33 Years Date of : [birth year] Reason For Visit: Diarrhea; Emesis; VOMITING, NAUSEA Arrival Time: 01/12/19 10:49:00 Primary Care Physician: NOMI PAZ Attending Physician: James Ramos MD Comment: Visit Diagnosis: Diagnoses This Visit Diarrhea ([id number]) Diarrhea (R19.7) Emesis ([id number]) Leukocytosis (D72.829) Lightheadedness (R42) Nausea and vomiting (R11.2) Prescription Information: If you have been given a prescription for narcotics, seek immediate medical attention if you have any difficulty breathing or any sudden status changes such as confusion and sleepiness. If you or anyone you know is experiencing suicidal thoughts, mental health, alcohol and/or drug addiction problems; contact the [facility] 27/01 Crisis Hotline -Text 4HGZM to 630198. If you received any narcotics, sedation, or any other medication that causes drowsiness for the next 24 hours, unless otherwise directed: ? Do not drive a car. ? Do not operate machinery such as power tools, lawn mowers, drills, sewing machines, or stoves ? Avoid alcoholic beverages and drugs for allergies, nerves, or sleep ? Do not make important personal or business decisions or sign any legal documents With: Address: When: NOMI PAZ [address] [place] [address] [place] [id number] Business (1) Within 3 to 5 days Comments: Diagnosis is history of nausea vomiting and diarrhea without abdominal discomfort, elevated white blood cell count. He reports going to a job location, and feeling nauseous on the way there, and having episodes of nausea and vomiting, and diarrhea. You felt lightheaded, may have a component of mild dehydration, the EMS gave you a liter of IV fluids, we gave you almost 1500 cc, and the lightheadedness resolved, We provided you with medication help with nausea, your blood work is overall negative for acute process requiring intervention in regards to your electrolytes, your CBC has normal blood count, white count was elevated, but most likely from the nausea and vomiting experienced prior to coming to the emergency department. You're not having any fevers, no abdominal pain. urinalysis is overall negative. Keep hydrated. Provided you with a prescription for medication help with nausea take as prescribed. Eat light, over the next 24-48 hours, soups, Jell-O, avoid heavy meals. Follow-up with your own primary care provider in the next 3-5 days, Return to the emergency room for worsening symptoms or concerns, onset of abdominal pain, worsening nausea or vomiting, spiking fevers, acute shortness of breath or chest pain, or any questions Medication Information: The exam and treatment you received today in the [facility] Emergency Department were for an urgent problem and are not intended as complete care. It is important for you to follow up with a doctor, nurse practitioner, or physician?s painter assistant for ongoing care. If your symptoms become worse or you do not improve as expected and you are unable to reach your usual health care provider, you should return to the Emergency Department, we are available 24 hours a day. For those patients who have received Radiology results, the interpretation of your X-ray as given to you by our Emergency Department physician is only a preliminary report. The Radiologist will review your films and if there is a change in the diagnosis you will be notified by phone. Please make sure you have provided a working phone number so we can reach you if necessary. In the event that you had a lab culture while you were a patient in the Emergency Department, you will be notified by phone if there is a need to change your antibiotic. Please make sure you have provided a working phone number so we can reach you if necessary. [facility] Emergency Department has provided you with a complete list of medications post discharge. Please inform your bulker/provider of your visit and for further instruction on these medications. Any specific questions regarding your chronic medications and dosages should be discussed with your primary care physician(s) and/or pharmacist. New Medications Printed Prescriptions ondansetron (Zofran ODT 4 mg oral tablet, disintegrating) 1 tab(s) Oral Every 8 hours as needed as needed for nausea/vomiting. Refills: 0. Visit Information Allergies: Substance Reaction Symptoms Type Comments No known allergies Drug Vital Signs: Vitals and Measurements this Visit (last charted value for your 01/12/2019 visit) Vital Signs This Visit Temperature Oral: 36.8 DegC Peripheral Pulse Rate: 89 bpm Respiratory Rate: 18 br/min Systolic Blood Pressure: 112 mmHg Diastolic Blood Pressure: 71 mmHg SpO2: 100 % Oxygen Therapy: Room air Measurements This Visit Height/Length Dosin.800 cm Height/Length Estimated: 177.800 cm Weight Dosin.130 kg Weight Estimated: 111.130 kg Problems List: Problem Onset Comments No Problems found Patient Education Diarrhea, Adult Diarrhea is frequent loose and watery bowel movements. Diarrhea can make you feel weak and cause you to become dehydrated. Dehydration can make you tired and thirsty, cause you to have a dry mouth, and decrease how often you urinate. Diarrhea typically lasts 2?3 days. However, it can last longer if it is a sign of something more serious. It is important to treat your diarrhea as told by your health care provider. Follow these instructions at home: Eating and drinking Follow these recommendations as told by your health care provider: ? Take an oral rehydration solution (ORS). This is a drink that is sold at pharmacies and retail stores. ? Drink clear fluids, such as water, ice chips, diluted fruit juice, and low-calorie sports drinks. ? Eat bland, toom-xr-xexywy foods in small amounts as you are able. These foods include bananas, applesauce, rice, lean meats, toast, and crackers. ? Avoid drinking fluids that contain a lot of sugar or caffeine, such as energy drinks, sports drinks, and soda. ? Avoid alcohol. ? Avoid spicy or fatty foods. General instructions ? Drink enough fluid to keep your urine clear or pale yellow. ? Wash your hands often. If soap and water are not available, use hand mechanical inspector. ? Make sure that all people in your household wash their hands well and often. ? Take deys-lcw-eaqrrdw and prescription medicines only as told by your health care provider. ? Rest at home while you recover. ? Watch your condition for any changes. ? Take a warm bath to relieve any burning or pain from frequent diarrhea episodes. ? Keep all follow-up visits as told by your health care provider. This is important. Contact a health care provider if: ? You have a fever. ? Your diarrhea gets worse. ? You have new symptoms. ? You cannot keep fluids down. ? You feel light-headed or dizzy. ? You have a headache ? You have muscle cramps. Get help right away if: ? You have chest pain. ? You feel extremely weak or you faint. ? You have bloody or black stools or stools that look like tar. ? You have severe pain, cramping, or bloating in your abdomen. ? You have trouble breathing or you are breathing very quickly. ? Your heart is beating very quickly. ? Your skin feels cold and clammy. ? You feel confused. ? You have signs of dehydration, such as: ? Dark urine, very little urine, or no urine. ? Cracked lips. ? Dry mouth. ? Sunken eyes. ? Sleepiness. ? Weakness. This information is not intended to replace advice given to you by your health care provider. Make sure you discuss any questions you have with your health care provider. Document Released: 06/13/2003 Document Revised: 02/04/2018 Document Reviewed: 02/27/2016 [employer] Patient Education ? 2019 [employer] Nausea and Vomiting, Adult Nausea is the feeling that you have an upset stomach or have to vomit. As nausea gets worse, it can lead to vomiting. Vomiting occurs when stomach contents are thrown up and out of the mouth. Vomiting can make you feel weak and cause you to become dehydrated. Dehydration can make you tired and thirsty, cause you to have a dry mouth, and decrease how often you urinate. Older adults and people with other diseases or a weak immune system are at higher risk for dehydration. It is important to treat your nausea and vomiting as told by your health care provider. Follow these instructions at home: Follow instructions from your health care provider about how to care for yourself at home. Eating and drinking Follow these recommendations as told by your health care provider: ? Take an oral rehydration solution (ORS). This is a drink that is sold at pharmacies and retail stores. ? Drink clear fluids in small amounts as you are able. Clear fluids include water, ice chips, diluted fruit juice, and low-calorie sports drinks. ? Eat bland, ibzp-is-dpwbik foods in small amounts as you are able. These foods include bananas, applesauce, rice, lean meats, toast, and crackers. ? Avoid fluids that contain a lot of sugar or caffeine, such as energy drinks, sports drinks, and soda. ? Avoid alcohol. ? Avoid spicy or fatty foods. General instructions ? Drink enough fluid to keep your urine clear or pale yellow. ? Wash your hands often. If soap and water are not available, use hand mechanical inspector. ? Make sure that all people in your household wash their hands well and often. ? Take jgqz-xtd-tcjecib and prescription medicines only as told by your health care provider. ? Rest at home while you recover. ? Watch your condition for any changes. ? Breathe slowly and deeply when you feel nauseated. ? Keep all follow-up visits as told by your health care provider. This is important. Contact a health care provider if: ? You have a fever. ? You cannot keep fluids down. ? Your symptoms get worse. ? You have new symptoms. ? Your nausea does not go away after two days. ? You feel light-headed or dizzy. ? You have a headache. ? You have muscle cramps. Get help right away if: ? You have pain in your chest, neck, arm, or jaw. ? You feel extremely weak or you faint. ? You have persistent vomiting. ? You see blood in your vomit. ? Your vomit looks like black coffee grounds. ? You have bloody or black stools or stools that look like tar. ? You have a severe headache, a stiff neck, or both. ? You have a rash. ? You have severe pain, cramping, or bloating in your abdomen. ? You have trouble breathing or you are breathing very quickly. ? Your heart is beating very quickly. ? Your skin feels cold and clammy. ? You feel confused. ? You have pain when you urinate. ? You have signs of dehydration, such as: ? Dark urine, very little urine, or no urine. ? Cracked lips. ? Dry mouth. ? Sunken eyes. ? Sleepiness. ? Weakness. These symptoms may represent a serious problem that is an emergency. Do not wait to see if the symptoms will go away. Get medical help right away. Call your local emergency services (911 in the [place] Do not drive yourself to the hospital. This information is not intended to replace advice given to you by your health care provider. Make sure you discuss any questions you have with your health care provider. Document Released: 06/23/2006 Document Revised: 11/25/2016 Document Reviewed: 02/27/2016 [employer] Patient Education ? 2019 [employer] Viruses or Bacteria What?s got you sick? Antibiotics only treat bacterial infections. Viral illnesses cannot be treated with antibiotics. When an antibiotic is not prescribed, ask your healthcare professional for tips on how to relieve symptoms and feel better. Usual Cause Illness Viruses Bacteria Antibiotic Needed Cold/Runny Nose NO Bronchitis/Chest Cold (in otherwise healthy children and adults) NO Whooping Cough Yes Flu NO Strep Throat Yes Sore Throat (except strep) NO Fluid in the middle ear (otitis media with effusion) NO Urinary Tract Infection Yes Antibiotics Aren?t Always the Answer www.cdc.gov/getsmart GET SMART Know When Antibiotics Work [place] Department of Health and Human Services Centers for Disease Control and Prevention March 2014 [facility] Extra Redon 07-09-2019 Tube Collected Yes [facility] Comment on above: Performed By: #### 1 [id number] #### [facility] (DEFAULT) [address] [place] [address] 00420 Manual Differential 3on 07-0 .Morphology? Normal [facility] Comment on above: Order Comment: Order added by Discern. Performed By: #### 1 [id number] #### [facility] (DEFAULT) [address] [place] [address] [id number] Band form neutrophils/100 WBC (Bld) 9 % High <=6 [facility] Comment on above: Order Comment: Order added by Chaka. Performed By: #### 1 [id number] #### [facility] (DEFAULT) [address] [place] [address] [id number] Basophil Man 0 % Normal <=1 [facility] Comment on above: Order Comment: Order added by Discern. Performed By: #### 1 [id number], [id number], [id number] #### [facility] (DEFAULT) [address] [place] [address] 41854 Eosinophils/100 WBC (Bld) 0 % Normal <=5 [facility] Comment on above: Order Comment: Order added by Discern. Performed By: #### 1 [id number], [id number], [id number], [id number], [id number], [id number] #### [facility] (DEFAULT) [address] [place] [address] 09484 Lymphocytes/100 WBC (Bld) 7 % Low 14-48 [facility] Comment on above: Order Comment: Order added by Chaka. Performed By: #### 1 [id number], [id number], [id number], [id number], [id number], [id number] #### [facility] (DEFAULT) [address] [place] [address] Monocyte Man 14 % High 1-11 [facility] Comment on above: Order Comment: Order added by Chaka. Performed By: #### 1 [id number], [id number], [id number], [id number], [id number], [id number] #### [facility] (DEFAULT) [address] [place] [address] 30713 React Lymph Man 1 % [facility] Comment on above: Order Comment: Order added by Chaka. Performed By: #### 1 [id number], [id number], [id number], [id number], [id number], [id number] #### [facility] (DEFAULT) [address] [place] [address] 99355 Segs Man 69 % Normal 50-70 [facility] Comment on above: Order Comment: Order added by Chaka. Performed By: #### 1 [id number], [id number], [id number], [id number], [id number], [id number] #### [facility] (DEFAULT) [address] [place] [address] 30885 Telemetry Stripson 9 Telemetry Strips [id number] [facility] Telemetry Strips [id number]# 1.00[facility] Troponin Ion 01-12-2019 Troponin I.cardiac [Mass/Vol] ng/mL Normal <=0.03 [facility] Comment on above: Performed By: #### 6 [id number] #### [facility] (DEFAULT) [address] [place] [address] 86344 Troponin I.cardiac [Mass/Vol] ng/mL Normal <=0.03 [facility] Comment on above: Performed By: #### 1 [id number], [id number], [id number], [id number], [id number], [id number] #### [facility] (DEFAULT) [address] [place] [address] UA [id number] 01-12-2019 RBC (U) [#/Vol] None Seen [facility] Comment on above: Order Comment: Urina lysis Microscopic order added on by [employer] Rules system. Performed By: #### 5 [id number], [id number] ####[facility] (DEFAULT)[address] [place] [address] UA Bacteria Rare Normal [facility] Comment on above: Order Comment: Urina lysis Microscopic order added on by [employer] system. Performed By: #### 5 [id number], [id number] ####[facility] (DEFAULT)[address] [place] [address] UA CA Ox Crystal 4+ [facility] Comment on above: Order Comment: Urina lysis Microscopic order added on by [employer] system. Result Comment: [place] hydrate form of Calcium oxalate crystals Performed By: #### 5 [id number], [id number] ####[facility] (DEFAULT)[address] [place] [address] UA WBC 0-2 [facility] Comment on above: Order Comment: Urina lysis Microscopic order added on by [employer] system. Performed By: #### 5 [id number], [id number] ####[facility] (DEFAULT)[address] [place] [address] UA w Culture if Ind Standard on 01-12-2019 Breakpoint UA [facility] Comment on above: Performed By: #### 5 [id number], [id number] ####[facility] (DEFAULT)[address] [place] [address] Color (U) YELLOW [facility] Comment on above: Performed By: #### 5 [id number], [id number] ####[facility] (DEFAULT)[address] [place] [address] Culture? No [facility] Comment on above: Performed By: #### 5 [id number], [id number] ####[facility] (DEFAULT)[address] [place] [address] Glucose (U) [Mass/Vol] Negative [facility] Comment on above: Performed By: #### 5 [id number], [id number] ####[facility] (DEFAULT)[address] [place] [address] 93458 Ketones Ql (U) Negative [facility] Comment on above: Performed By: #### 5 [id number], [id number] ####[facility] (DEFAULT)[address] [place] [address] 81618 Micro? Indicated [facility] Comment on above: Performed By: #### 5 [id number], [id number] ####[facility] (DEFAULT)[address] [place] [address] 57795 UA Bilirubin Negative Normal [facility] Comment on above: Performed By: #### 5 [id number], [id number] ####[facility] (DEFAULT)[address] [place] [address] 25685 UA Blood Negative Normal NEGATIVE [facility] Comment on above: Performed By: #### 5 [id number], [id number] ####[facility] (DEFAULT)[address] [place] [address] 32090 UA Clarity SL CLOUDY Abnormal CLEAR [facility] Comment on above: Performed By: #### 5 [id number], [id number] ####[facility] (DEFAULT)[address] [place] [address] 84842 UA Leuk Est Negative Normal NEGATIVE [facility] Comment on above: Performed By: #### 5 [id number], [id number] ####[facility] (DEFAULT)[address] [place] [address] 10764 UA Nitrite Negative Normal NEGATIVE [facility] Comment on above: Performed By: #### 5 [id number], [id number] ####[facility] (DEFAULT)[address] [place] [address] 58968 UA pH 5.5 5-8 [facility] Comment on above: Performed By: #### 5 [id number], [id number] ####[facility] (DEFAULT)[address] [place] [address] 93411 UA Protein TRACE Abnormal NEGATIVE [facility] Comment on above: Performed By: #### 5 [id number], [id number] ####[facility] (DEFAULT)[address] [place] [address] UA Spec Grav >=1.030 1.001-1.035 [facility] Comment on above: Performed By: #### 5 [id number], [id number] ####[facility] (DEFAULT)[address] [place] [address] UA Urobilinogen 0.2 mg/dL Normal 0.2-1.0 [facility] Comment on above: Performed By: #### 5 [id number], [id number] ####[facility] (DEFAULT)[address] [place] [address] Urine Source Clean Catch Normal [facility] Comment on above: Performed By: #### 5 [id number], [id number] ####[facility] (DEFAULT)[address] [place] [address]1293 Vital Signs Date Time Vital Sign Value Performing Clinician Faci [facility] 09-19-2022 14:41-0400 Body height 177.8 cm MD Nomi Paz Work Phone: [facility] 09-19-2022 14:41-0400 Body temperature 98.6 [degF] MD Nomi Paz Work Phone: [facility] 09-19-2022 14:41-0400 Body weight 106.59 kg MD Nomi Paz Work Phone: [facility] 09-19-2022 14:41-0400 Diastolic blood pressure 119 mm[Hg] MD Nomi Paz Work Phone: [facility] 09-19-2022 14:41-0400 Heart rate 99 /min MD Nomi Paz Work Phone: [facility] 09-19-2022 14:41-0400 Respiratory rate 18 /min MD Nmoi Paz Work Phone: [facility] 09-19-2022 14:41-0400 SaO2% (BldA) [Mass fraction] 98 % MD Nomi Paz Work Phone: [facility] 09-19-2022 14:41-0400 Systolic blood pressure 171 mm[Hg] MD Nomi Paz Work Phone: [facility] 07-09-2022 19:55-0500 Diastolic blood pressure 99 mm[Hg] MD Nomi Paz Work Phone: [facility] 07-09-2022 19:55-0500 Heart rate 77 /min MD Nomi Paz Work Phone: [facility] 07-09-2022 19:55-0500 Respiratory rate 20 /min MD Nomi Paz Work Phone: [facility] 07-09-2022 19:55-0500 SaO2% (BldA) [Mass fraction] 99 % MD Nomi Paz Work Phone: [facility] 07-09-2022 19:55-0500 Systolic blood pressure 168 mm[Hg] MD Nomi Paz Work Phone: [facility] 07-09-2022 18:48-0500 Body height 180.34 cm MD Nomi Paz Work Phone: [facility] 07-09-2022 18:48-0500 Body temperature 97.2 [degF] MD Nomi Paz Work Phone: [facility] 07-09-2022 18:48-0500 Body weight 104.32 kg MD Nomi Paz Work Phone: [facility] Encounters Encounter Date Encounter Type Care Provider Facility Start: 09-10-2023 End: 09-10-2023 ambulatory Celeste Anglin Facility:[facility] Start: 09-19-2022 End: 09-19-2022 Emergency department patient visit Amalia Morales Facility:[facility] Start: 09-19-2022 End: 09-19-2022 Emergency department patient visit MD Nomi Paz Work Phone: [facility] Work Phone: Start: 07-09-2022 End: 07-09-2022 ambulatory MD Nomi Paz Work Phone: [facility] Work Phone: Start: 07-09-2022 End: 07-09-2022 Patient encounter procedure MD Nomi Paz Work Phone: [facility] [place] Work Phone: Start: 07-09-2022 End: 07-09-2022 Emergency department patient visit MD Nomi Paz Work Phone: [facility] Work Phone: Start: 02-14-2022 End: 02-14-[address] NOMI PAZ Facility:[facility] Start: 06-09-2021 End: 06-09-[address] NOMI PAZ Facility:[facility] Start: 03-16-2021 End: 03-17-[address] NOMI PAZ Facility:[facility] Procedures Date Procedure Procedure Detail Performing Clinician Start: 09-19-2022 Plain X-ray of left forearm MD Nomi Paz Work Phone: Start: 09-19-2022 Plain X-ray of left hand MD Nomi Paz Work Phone: Plan of Treatment Date Care Activity Detail Author Patient Education [facility] Work Phone: Patient referral [facility] Work Phone: Immunizations Immunization Date Immunization Notes Care Provider Fa cility 09-19-2022 tetanus toxoid, redu saud diphtheria toxoid, and acellular pertussis vaccine, adsorbed MD Nomi Paz Work Phone: [facility] Payers Date Payer Category Payer Self-pay [id number] 2022 Worker's Compensation [id number] 1985 Unknown [id number] 1986 Unknown [id number] 1986 Unknown [id number] 1959 Unknown [id number] Private Health Insurance [employer] [id number] Unknown [place] [id number] Unknown [id number] Unknown [id number] Social History Date Type Detail Facility Tobacco smoking stat us [facility] Unknown if ever smoked [facility] Work Phone: Start: 1985 Sex Assigned At Male [facility] Start: 07-09-2022 End: 09-19-2022 Tobacco smoking status NHIS Never smoked tobacco (finding) [facility] Hospital Discharge instructions 09-19-2022 Note Date & Type Note Facility 09-19-2022 Hospital Discharg e instructions Additional Instructions Keep wounds clean and dry Wash with soap and water daily apply antibiotic ointment 2-3 times a day May take [id number] Tylenol and/or ibuprofen for discomfort Take the antibiotic Augmentin twice a day for 10 days take with food Follow-up with family doctor and/or [facility] for recheck Return to the ER for worsening redness swelling pain fever chills or any other concerns [facility] Work Phone: Clinical Note 06-09-2021 Note Date & Type Note Facility 06-09-2021 Note PROCEDURE: XR CHEST 2 V REASON FOR STUDY/CLINICAL HISTORY: Chest pain. COMPARISON STUDY: None available at time of dictation. TECHNIQUE: Frontal and lateral view(s) of the chest presented for interpretation. FINDINGS: No acute cardiopulmonary process. Scattered areas of calcification most suggest the sequela of prior granulomatous disease. Very subtle atelectasis at the left lateral lung base. The costophrenic angles and costophrenic sulci are sharp. On the lateral view, very slight central bronchial thickening is not entirely excluded. Normal cardiomediastinal silhouette. No focal consolidation, edema, or effusion. No pneumothorax. No acute appearing focal significant bony abnormality. IMPRESSION: Mild bronchial thickening on the lateral view as described with subtle left basilar atelectatic change. No consolidation, large pleural effusion, or pneumothorax. Electronically authenticated by: DEJUAN JIN Date: 2021-06-09 20:[address] [facility] Evaluation note Note Date & Type Note Facility Evaluation note No assessment information availa [facility] Work Phone: Summary Purpose Family History No Family History Records FoundNo Family History Records FoundNo Family History Records Found Advance Directives No Advanced Directives Records Found Advance Directive Response Recorded Date/ Time Advance Directives No July 09, 2022 8:16pm Advance Directive Response Recorded Date/ Time Advance Directives No July 09, 2022 9:16pm Chief Complaint and Reason for Visit Chief Complaint private Chief Complaint private Ordered by AUDREY post-accident blood testing Chief Complaint private DOG BITE Additional Source Comments (unrecognized sect ion and content) No Status Records FoundNo Status Records FoundNo Status Records Found INFORMATION SOURCE (unrecogn ized section and content) DATE CREATED AUTHOR 09/13/2019 [facility] DATE CREATED AUTHOR AUTHOR'S ORGANIZ ATION 02/15/2022 [facility] DATE CREATED AUTHOR AUTHOR'S ORGANIZ ATION 09/14/2023 [facility] Goals (unrecognized section and content) Goals may be documented in a n alternate sectionGoals may be documented in an alternate sectionGoals may be documented in an alternate sectionGoals may be documented in an alternate section Care Teams (unrecognized sec tion and content) Team Status: Inactive Member Role Status Dates Nomi Paz MD Primary Care Provider Active Margarito Medrano DO Emergency Provider Active Team Status: Active Member Role Status Dates Nomi Paz MD Primary Care Provider Active Team Status: Inactive Member Role Status Dates Nomi Paz MD Primary Care Provider Active NON STAFF Attending Provider Active Team Status: Inactive Member Role Status Dates Nomi Paz MD Primary Care Provider Active MYRA Castillo-PER Emergency Provider Active FOR RECORDS PERTAINING TO PATIENTS WHO ARE OR HAVE BEEN ENROLLED IN A CHEMICAL DEPENDENCY/SUBSTANCEABUSE PROGRAM, SOME INFORMATION MAY BE OMITTED. This clinical summary was aggregated from multiple sources. Caution should be exercised in using it in the provision of clinical care. This summary normalizes information from multiple sources, and as a consequence, information in this document may materially change the coding, format and clinical context of patient data. In addition, data may be omitted in some cases. CLINICAL DECISIONS SHOULD BE BASED ON THE PRIMARY CLINICAL RECORDS. [facility]. provides no warranty or guarantee of the accuracy or completeness of information in this document.
--- NOTE | 2024-02-20 18:13 | ED_ITS ---
HPI - Skin/Abscess/Foreign Bdy General Chief complaint: Skin/Abscess/Foreign Body Stated complaint: SKIN ABCESS-SAW AMIE FLORES Time Seen by Provider: 02/20/24 18:07 Source: patient Mode of arrival: walk-in Limitations: no limitations History of Present Illness HPI narrative: This patient is here with swelling and discomfort in front of his left ear. He is always primary care doctor earlier this week and was started on 2 different antibiotics including doxycycline and cefdinir. The area is not getting any better. He has no history of MRSA. He has been swimming in a swimming pool but has not been in ponds, peña or null. He has no other soft tissue infections of the skin at this time he is not on any diabetes medication. He has not had shakes or chills. Has no problem or pain in his ear area. No ocular complaints. Related Data Home Medications ?Medication ?Instructions ?Recorded ?Confirmed cefdinir 300 mg capsule 300 mg PO Q12H 02/20/24 02/20/24 clonazepam 0.5 mg tablet 0.5 mg PO .QHS 02/20/24 02/20/24 doxycycline monohydrate 100 mg 100 mg PO Q24H 02/20/24 02/20/24 capsule fluoxetine 20 mg capsule 60 mg PO DAILY 02/20/24 02/20/24 lisinopril 20 mg tablet 20 mg PO DAILY 02/20/24 02/20/24 Allergies Allergy/AdvReac Type Severity Reaction Status Date / Time No Known Drug Allergies Allergy Verified 02/20/24 18:00 Exam Narrative Exam Narrative: Awake alert pleasant there is a 2-1/2 cm tender swollen area in front of the tragus on the left side of his face. It is not a firm mass but more consistent with an infectious process. His cranial nerves are normal. His hearing is intact. There is no other ocular or auditory findings Constitutional Vital Signs, click to edit/add: Last Vital Signs Temp 98.1 F 02/20/24 17:57 Pulse 75 02/20/24 17:57 Resp 16 02/20/24 17:57 BP 142/90 H 02/20/24 18:02 Pulse Ox 98 02/20/24 17:57 O2 Del Method Room Air 02/20/24 17:57 Course Vital Signs Vital signs: Vital Signs Temperature 98.1 F 02/20/24 17:57 Pulse Rate 75 08/16/24 17:57 Respiratory Rate 16 02/20/24 17:57 Blood Pressure 157/112 H 02/20/24 17:57 Pulse Oximetry 98 02/20/24 17:57 Oxygen Delivery Method Room Air 02/20/24 17:57 Temperature 98.1 F 02/20/24 17:57 Pulse Rate 75 02/20/24 17:57 Respiratory Rate 16 02/20/24 17:57 Blood Pressure 142/90 H 02/20/24 18:02 Pulse Oximetry 98 02/20/24 17:57 Oxygen Delivery Method Room Air 02/20/24 17:57 MDM - Skin/Abscess/Foreign Bdy MDM Narrative Medical decision making narrative: Patient's findings are most consistent with a skin infection. This was not really fluctuant it was freely movable and not firm. Since he is not completely cleared upper substantially improved with antibiotics I felt we should go ahead and open this up So after lidocaine 1% anesthesia with epinephrine being sure to stay far anterior to the temporal artery and superior to the parotid gland I made lidocaine wheal for local anesthesia. An 18-gauge needle was then introduced into the area of swelling with aspiration but no return of pus blood or other material was noted. At that time I then made a 1/2 inch incision into the area and introduced a hemostat. No oily waxy or infectious secretions were obtained. We did place a wick in the area and a dressing. I also then assessed the anterior posterior cervical chain and supraclavicular chain and there is no adenitis. I believe this is most likely a resolving infection. I do want him follow-up with his primary care doctor early next week Discharge Plan Discharge Stand Alone Forms: Portal Instructions Chief Complaint: Skin/Abscess/Foreign Body Clinical Impression: Skin infection Patient Disposition: Home, Self-Care Time of Disposition Decision: 18:44 Prescriptions / Home Meds: No Action lisinopril 20 mg tablet 20 mg PO DAILY fluoxetine 20 mg capsule 60 mg PO DAILY cefdinir 300 mg capsule 300 mg PO Q12H doxycycline monohydrate 100 mg capsule 100 mg PO Q24H clonazepam 0.5 mg tablet 0.5 mg PO .QHS Print Language: Palestinian Additional Instructions: Warm, to the area. Finish antibiotics. Follow-up with your primary care doctor early next week Referrals: Blake Paz MD [Primary Care Provider] - 1 week
[2024-02-20] MEDS: LIDOCAINE HCL 1%-EPINEPHRINE 1:100,000 20 ML MDV INJ (18:39)
[2024-02-20] MEDS: BACITRACIN 0.9 GM PACKET 1 PACKET TOPICAL (18:53)
== END 2024-02-20 18:55 | disposition home or self-care (01) ==
PROVIDERS: Emergency Provider Emergency Medicine Emergency Medical Services; PCP Family Medicine
DX: L08.9 Local infection of the skin and subcutaneous tissue, unspecified (principal)
CPT/HCPCS: 10060; 99284

== ENCOUNTER 2024-03-23 09:46 | Outpatient (OUT) | payer BC, SELFPAY ==
[2024-03-23 10:14] LABS: Basophils Absolute Auto 0.1 10^3/uL (0.0-0.1); Basophils Percent Auto 0.7 % (0.2-2.0); Eosinophils Absolute Auto 0.1 10^3/uL (0.0-0.7); Eosinophils Percent Auto 0.9 % (0.9-7.0); Hematocrit 41.1 % (42.0-54.0); Immature Granulocytes Abs Auto 0.03 10^3/uL (0.00-0.03); Immature Granulocytes Pct Auto 0.4 % (0.0-0.5); Lymphocytes Absolute Auto 2.4 10^3/uL (1.2-3.8); Lymphocytes Percent Auto 31.5 % (20.5-60.0); Mean Corpuscular HGB Conc 34.1 g/dL (29.9-35.2); Mean Corpuscular Hemoglobin 28.2 pg (25.9-34.0); Mean Corpuscular Volume 82.7 fL (80.0-94.0); Mean Platelet Volume 9.6 fL (9.5-13.5); Monocytes Absolute Auto 0.8 10^3/uL (0.3-0.8); Monocytes Percent Auto 10.9 % (1.7-12.0); Neutrophils Absolute Auto 4.2 10^3/uL (1.4-6.5); Neutrophils Percent Auto 55.6 % (43.0-75.0); Platelet Count 293 10^3/uL (150-450); Red Blood Count 4.97 10^6/uL (4.70-6.10); White Blood Count 7.5 10^3/uL (4.0-11.0)
[2024-03-23 10:42] LABS: Estimated Average Glucose 100 mg/dL; Glycohemoglobin A1C 5.1 % (4.5-6.2)
[2024-03-23 11:00] LABS: Alanine Aminotransferase 39 U/L (16-63); Albumin Globulin Ratio 1.1; Albumin Level 4.2 g/dL (3.4-5.0); Alkaline Phosphatase 67 U/L (46-116); Anion Gap 11.5; Aspartate Amino Transferase 21 U/L (15-37); BUN Creatinine Ratio 16.3; Bilirubin Total 0.8 mg/dL (0.2-1.0); Calcium 9.1 mg/dL (8.5-10.1); Carbon Dioxide 27.2 mmol/L (21.0-32.0); Chloride 101 mmol/L (98-107); Chol HDL Ratio 5.3; Cholesterol 213 mg/dL (<=200); Estimated GFR (African America >60 (>=60); Estimated GFR (Non-African Ame >60 (>=60); Free T3 2.67 pg/mL (2.18-3.98); Globulin 3.9 g/dL; Glucose 89 mg/dL (74-106); HDL Cholesterol 40 mg/dL (40-60); Potassium 3.7 mmol/L (3.5-5.1); Sodium 136 mmol/L (136-145); Thyroid Stimulating Hormone 0.768 uIU/mL (0.358-3.740); Total Protein 8.1 g/dL (6.4-8.2); Triglycerides 103 mg/dL (<=150); VLDL CHOLESTEROL 20.6 mg/dL
[2024-03-23 11:03] LABS: Prostate Specific Antigen Scrn 0.35 ng/mL (<=4.00)
== END 2024-03-23 09:47 | disposition home or self-care (01) ==
LOC: LAB 09:48
PROVIDERS: PCP Family Medicine; Visit Provider Family Medicine
DX: Z00.00 Encounter for general adult medical examination without abnormal findings (principal)
CPT/HCPCS: 36415; 80053; 80061; 83036; 84436; 84443; 84481; 85025; G0103

== ENCOUNTER 2024-04-30 11:31 | Outpatient (REF) | payer BC, SELFPAY ==
[2024-04-30 12:39] LABS: Internal Control Within Normal Limits; Occult Blood Negative
== END 2024-04-30 11:32 | disposition home or self-care (01) ==
LOC: LAB 11:31
PROVIDERS: PCP Family Medicine; Visit Provider Family Medicine
DX: Z00.00 Encounter for general adult medical examination without abnormal findings (principal)
CPT/HCPCS: G0328

== ENCOUNTER 2024-05-14 08:15 | Outpatient (OUT) | payer BC, SELFPAY ==
--- NOTE | 2024-05-14 08:17 | US_ITS ---
The [address] [address] Patient Name: COLE YOUSIF MRN: [id number] date: 1985 Sex: M Assigned Patient Location: US Current Patient Location: US Accession/Order Number: [id number] Exam Date: 05/14/2024 08:30 Report Date: 05/14/2024 10:42 At the request of: NOMI HOLLOWAY Procedure: US right upper quadrant EXAMINATION: US right upper quadrant HISTORY: Right Upper Quadrant Pain COMPARISON: No relevant comparison available. TECHNIQUE: Transabdominal evaluation of the right upper quadrant. FINDINGS: LIVER: Normal size and echotexture. Color Doppler demonstrates patent hepatic veins. PORTAL VEIN: Duplex Doppler demonstrates normal hepatopetal flow pattern with flow velocity averaging 24 cm/s. GALLBLADDER: No visible gallstones, wall thickening, or pericholecystic free fluid. Negative sonographic Mack's sign. BILIARY: No abnormal dilation or stones. Common bile duct diameter is within normal limits. PANCREAS: No visible mass, abnormal atrophy, or duct dilation. KIDNEY: No hydronephrosis. No visible mass or stones. Size: 11.0 x 5.9 x 5.6 cm US/US right upper quadrant IMPRESSION: 1. No acute or suspicious findings to account for patient's symptoms. Electronically authenticated by: ALONZO BAZZI Date: 05/14/2024 10:42
--- OUTSIDE RECORDS SUMMARY | 2024-05-14 08:24 | XMS_ITS | CCD ---
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; Translations: [OTH CUSTODIAL CURRENT DRUG THERAPY] Onset: 06-11-2021 Episodic Other [...] XR chest 2V*on 09-10-2023 XR chest 2V* [facility] Main [address] [address] XRay Report Signed Patient: Eduardo Yousif MR#: [id number] : 1985 Acct:[id number] Age/Sex: 38 / M ADM Date: 09/10/23 Loc: XDUCLY Room: Type: [facility] CLI Attending Dr: Celeste TREVIÑO Copies [...] Jane Mac M.D.09/10/2023 10:54 AM Dictation Location: [place] [address] Transcribed By: [facility] 09/10/23 1054 Dictated By: Jane Mac MD 09/10/23 1052 Signed By: 09/10/23 1054 Normal [facility] XR forearm LT 2V*on 09-20-19 XR forearm LT 2V* [facility] Main [address] [address] XRay Report Signed Patient: Eduardo Yousif MR#: [id number] : 1985 Acct:[id number] Age/Sex: 37 / M ADM Date: 09/19/22 Loc: ER Room: Type: [facility] ER Attending Dr: Copies to: FRANCES [...] 3:43 PM Dictation Location: RADIO--03 Transcribed By: [facility] 09/19/22 154 Dictated By: Henry Encinas DO 09/19/22 154 Signed By: 09/19/22 154 [facility] XR hand LT min 3V*on 023 XR hand LT min 3V* [facility] [place] [address] XRay Report Signed Patient: Eduardo Yousif MR#: [id number] : 1985 Acct:[id number] Age/Sex: 37 / M ADM Date: 09/19/22 Loc: ER Room: Type: [facility] ER Attending Dr: Copies to: FRANCES [...] Henry Encinas M.D.09/19/2022 3:42 PM Dictation Location: [employer]-03 Transcribed By: [facility] 09/19/22 154 Dictated By: Henry Encinas DO 09/19/22 154 Signed By: 09/19/22 154 [facility] Covid-19 PCR (CVDTB)on 02-04 SARS-CoV-2 (COVID-19) RNA HELEN+probe Ql (Unsp spec) Not detected Normal NOT DETECTED [facility] Comment on above: Result Comment: This test is not yet approved or cleared by the [place] FDA. When there are no FDA-approved or cleared tests available, and other criteria are met, FDA can make tests available under an emergency access mechanism called an Emergency Use Authorization (EUA). The EUA for this test is supported by the [place] Operator of Health and Human Service's (HHS's) declaration [...] SARS-CoV-2. Performed By: #### C VDTB #### [facility] [address] [place] [address] Dr. Staci Rodriguez CBC AUTO DIFFon 06-09-2021 BASO # 0.1 103/ul Normal 0.0-0.1 [facility] Comment on above: Performed By: #### C BC #### [facility] [address] [place] [address] Dr. Staci Rodriguez Basophils/100 WBC (Bld) 0.6 % Normal 0.2-2.0 [facility] Comment on above: Performed By: #### C BC #### [facility] [address] [place] [address] Dr. Staci Rodriguez EO # 0.2 103/ul Normal 0.0-0.7 [facility] Comment on above: Performed By: #### C BC #### [facility] [address] [place] [address] Dr. Staci Rodriguez Eosinophils/100 WBC (Bld) 1.4 % Normal 0.9-7.0 [facility] Comment on above: Performed By: #### C BC #### [facility] [address] [place] [address] Dr. Staci Rodriguez Erythrocyte distribution width (RBC) [Ratio] 12.2 % Normal 11.0-15.0 [facility] Comment on above: Performed By: #### C BC #### [facility] [address] [place] [address] Dr. Staci Rodriguez Hematocrit (Bld) [Volume fraction] 43.2 % Normal 42.0-54.0 [facility] Comment on above: Performed By: #### C BC #### [facility] [address] [place] [address] Dr. Staci Rodriguez Hemoglobin (Bld) [Mass/Vol] 14.6 g/dL Normal 14.0-18.0 [facility] Comment on above: Performed By: #### C BC #### [facility] [address] [place] [address] Dr. Staci Rodriguez IG # 0.04 10e3/ul Critically high 0.00-0.03 [facility] Comment on above: Performed By: #### C BC #### [facility] [address] [place] [address] Dr. Staci Rodriguez IG % 0.3 % Normal 0.0-0.5 [facility] Comment on above: Performed By: #### C BC #### [facility] [address] [place] [address] Dr. Staci Rodriguez LYMPH # 4.3 103/ul Critically high 1.2-3.8 [facility] Comment on above: Performed By: #### C BC #### [facility] [address] [place] [address] Dr. Staci Rodriguez Lymphocytes/100 WBC (Bld) 34.1 % Normal 20.5-60.0 [facility] Comment on above: Performed By: #### C BC #### [facility] [address] [place] [address] Dr. Staci Rodriguez MANUAL DIFF REQ NO Normal [facility] Comment on above: Performed By: #### C BC #### [facility] [address] [place] [address] Dr. Staci Rodriguez MCH (RBC) [Entitic mass] 28.2 pg Normal 25.9-34.0 [facility] Comment on above: Performed By: #### C BC #### [facility] [address] [address] [address] Staci Rodriguez MCHC (RBC) [Mass/Vol] 33.8 g/dL Normal 29.9-35.2 [facility] Comment on above: Performed By: #### C BC #### [facility] [address] [place] [address] Dr. Staci Rodriguez MCV (RBC) [Entitic vol] 83.6 fL Normal 80.0-94.0 [facility] Comment on above: Performed By: #### C BC #### [facility] [address] [place] [address] Dr. Staci Rodriguez MONO # 1.2 103/ul Critically high 0.3-0.8 [facility] Comment on above: Performed By: #### C BC #### [facility] [address] [place] [address] Dr. Staci Rodriguez Monocytes/100 WBC (Bld) 9.3 % Normal 1.7-12.0 [facility] Comment on above: Performed By: #### C BC #### [facility] [address] [place] [address] Dr. Staci Rodriguez NEUT # 6.8 103/ul Critically high 1.4-6.5 [facility] Comment on above: Performed By: #### C BC #### [facility] [address] [place] [address] Dr. Staci Rodriguez Neutrophils/100 WBC (Bld) 54.3 % Normal 43.0-75.0 [facility] Comment on above: Performed By: #### C BC #### [facility] [address] [place] [address] Dr. Staci Rodriguez Platelet mean volume (Bld) [Entitic vol] 9.1 fL Critically low 9.5-13.5 [facility] Comment on above: Performed By: #### C BC #### [facility] [address] [place] [address] Dr. Staci Rodriguez PLT 309 103/ul Normal 150-450 [facility] Comment on above: Performed By: #### C BC #### [facility] [address] [place] [address] Dr. Staci Rodriguez RBC 5.17 106/ul Normal 4.70-6.10 [facility] Comment on above: Performed By: #### C BC #### [facility] [address] [place] [address] Dr. Staci Rodriguez WBC 12.6 103/ul Critically high 4.0-11.0 [facility] Comment on above: Performed By: #### C BC #### [facility] [address] [place] [address] Dr. Staci Rodriguez D-DIMERon 06-09-2021 D-DIMER <0.19 Normal 0.19-0.50 [facility] Comment on above: Performed By: #### D DIM #### [facility] [address] [place] [address] Dr. Staci Rodriguez D-DIMER COMMENTS SEE BELOW Normal [facility] Comment on above: Result Comment: Incr eases [...] hospitalization. Performed By: #### D DIM #### [facility] [address] [place] [address] Dr. Staci Rodriguez PROF CHEM 8 (BAS METB)on Anion gap [Moles/Vol] 12.2 mmol/L Normal [facility] Comment on above: Performed By: #### H OSCARPN, BMP #### [facility] [address] [place] [address] Dr. Staci Rodriguez Calcium [Mass/Vol] 9.5 mg/dL Normal 8.4-10.2 [facility] Comment on above: Performed By: #### H STROPN, BMP #### [facility] [address] [address] [address] Staci Rodriguez Chloride [Moles/Vol] 102 mmol/L Normal 98-107 [facility] Comment on above: Performed By: #### H STROPN, BMP #### [facility] [address] [address] [address] Staci Rodriguez CO2 [Moles/Vol] 28.1 mmol/L Normal 22.0-30.0 [facility] Comment on above: Performed By: #### H STROPN, BMP #### [facility] [address] [address] [address] Staci Rodriguez Creatinine [Mass/Vol] 1.12 mg/dL Normal 0.66-1.25 [facility] Comment on above: Performed By: #### H STROPN, BMP #### [facility] [address] [place] [address] [address] Staci Rodriguez EGFR-AF TUNISIAN >60 Normal >=60 [facility] Comment on above: Performed By: #### H STROPN, BMP #### [facility] [address] [address] [address] Staci Rodriguez EGFR-NON AF TUNISIAN >60 Normal >=60 [facility] Comment on above: Performed By: #### H STROPN, BMP #### [facility] [address] [address] [address] Staci Rodriguez Glucose [Mass/Vol] 92 mg/dL Normal 74-106 [facility] Comment on above: Performed By: #### H STROPN, BMP #### [facility] [address] [address] [address] Staci Rodriguez Potassium [Moles/Vol] 3.3 mmol/L Critically low 3.4-5.0 [facility] Comment on above: Performed By: #### H STROPN, BMP #### [facility] [address] [address] [address] Staci Rodriguez Sodium [Moles/Vol] 139 mmol/L Normal 137-145 [facility] Comment on above: Performed By: #### H STROPN, BMP #### [facility] [address] [address] [address] Staci Rodriguez Urea nitrogen [Mass/Vol] 10.0 mg/dL Normal 9.0-20.0 [facility] Comment on above: Performed By: #### H ANNAMARIA, BMP #### [facility] [address] [address] [address] Staci Rodriguez Urea nitrogen/Creatinine [Mass ratio] 8.9 mg/mg Normal [facility] Comment on above: Performed By: #### H ANNAMARIA, BMP #### [facility] [address] [address] [address] Staci Rodriguez TROPONIN, HIGH SENSITIVITYon 06-09-2021 HSTROP 38.4 pg/mL Normal 4.0-42.2 [facility] Comment on above: Result Comment: CUT- OFF POINTS HAVE BEEN ESTABLISHED BASED ON THE FOURTH UNIVERSAL DEFINITIONS OF MYOCARDIAL INFARCTION. THE UPPER REFERENCE LIMIT (URL) OF TROPONIN, DEFINED THE 99TH PERCENTILE OF cTnI DISTRIBUTION IN A REFERENCE POPULATION, HAS BEEN CONFIRMED THE DECISION THRESHOLD FOR UT DIAGNOSIS. Performed By: #### H ANNAMARIA, BMP #### [facility] [address] [address] [address] Staci Rodriguez GLYCOHEMOGLOBIN A1Con 2020 ADA RECOMMENDATION ADA THERAPEUTIC TARGET 6.0 - 7.0 ACTION SUGGESTED > 7.0 Normal [facility] Comment on above: Performed By: #### A 1C #### [facility] [address] [place] [id number] Efraín Jane Glucose [Mass/Vol] 111 mg/dL Normal [facility] Comment on above: Performed By: #### A 1C #### [facility] [address] [place] [id number] Efraín Jane HbA1c (Bld) [Mass fraction] 5.5 % Normal <=6.0 [facility] Comment on above: Performed By: #### A 1C #### [facility] [address] [id number] Efraín Lara LIPID PROFILEon 03-16-2021 CHOL-HDL RATIO NORM SEE BELOW Normal [facility] Comment on above: Result Comment: 3.3 - 4.4 LOW RISK 4.4 - 7.1 AVERAGE RISK 7.1 - 11.0 MODERATE RISK >11.0 HIGH RISK Performed By: #### T JEFFREY CMP, LIPID ####[facility] [address] [place], [place] [address]Xdfpxw Jane Cholesterol [Mass/Vol] 219 mg/dL Critically high <=200 [facility] Comment on above: Performed By: #### T JEFFREY CMP, LIPID ####[facility] [address] [place], [place] [address]Ruitkd Jane Cholesterol in HDL [Mass/Vol] 45 mg/dL Normal [facility] Comment on above: Performed By: #### T JEFFREY CMP, LIPID ####[facility] [address] [place], [place] [address]Salnbq Jane Cholesterol in LDL [Mass/Vol] 156.4 mg/dL Normal [facility] Comment on above: Performed By: #### T JEFFREY CMP, LIPID ####[facility] [address] [place], [place] [address]Iffpfx Jane Cholesterol.total/Cho lesterol in HDL [Mass ratio] 4.9 {ratio} Normal [facility] Comment on above: Performed By: #### T JEFFREY CMP, LIPID ####[facility] [address] [place], [place] [address]Qwghwg Jane HDL NORMAL > or = 60 mg/dl - LOW CARDIOVASCULAR RISK <40 mg/dl - HIGH CARDIOVASCULAR RISK Normal [facility] Comment on above: Performed By: #### T JEFFREY CMP, LIPID ####[facility] [address] [place], [place] [address]Ifiatl Jane LDL CALC NORMAL SEE BELOW Normal [facility] Comment on above: Result Comment: <100 mg/dl OPTIMAL 100 - 129 mg/dl NEAR OR ABOVE OPTIMAL 130 - 159 mg/dl BORDERLINE HIGH 160 - 189 mg/dl HIGH >190 mg/dl VERY HIGH Performed By: #### T JEFFREY, CMP, LIPID ####[facility] [address] [place], [place] [address]Wpmjgd Jane Triglyceride [Mass/Vol] 88 mg/dL Normal <=150 [facility] Comment on above: Performed By: #### T SH, CMP, LIPID ####[facility] [address] [place], [place] [address]Pahdnv Jane VLDL CALC 17.6 mg/dL Normal [facility] Comment on above: Performed By: #### T JEFFREY, CMP, LIPID ####[facility] [address] [place] [id number] Gamboaen PROF 14(COMP METB)on 021 Albumin [Mass/Vol] 4.3 g/dL Normal 3.5-5.0 [facility] Comment on above: Performed By: #### T JEFFREY CMP, LIPID #### [facility] [address] [id number] Efraín Jane Albumin/Globulin [Mass ratio] 1.0 {ratio} Normal [facility] Comment on above: Performed By: #### T JEFFREY CMP, LIPID #### [facility] [address] [id number] Efraín Jane ALP [Catalytic activity/Vol] 74 U/L Normal 38-126 [facility] Comment on above: Performed By: #### T JEFFREY CMP, LIPID #### [facility] [address] [place] [address] Efraín Jane ALT [Catalytic activity/Vol] 50 U/L Normal 21-72 [facility] Comment on above: Performed By: #### T JEFFREY, CMP, LIPID #### [facility] [address] [id number] Efraín Jane Anion gap [Moles/Vol] 14.0 mmol/L Normal [facility] Comment on above: Performed By: #### T SH, CMP, LIPID #### [facility] [address] [place], [place] [id number] Efraín Jane AST [Catalytic activity/Vol] 27 U/L Normal 17-59 [facility] Comment on above: Performed By: #### T SH, CMP, LIPID #### [facility] [address] [place], [place] [id number] Efraín Jane Bilirubin [Mass/Vol] 0.7 mg/dL Normal 0.2-1.3 [facility] Comment on above: Performed By: #### T JEFFREY CMP, LIPID #### [facility] [address] [place] [address] Efraín Jane Calcium [Mass/Vol] 9.0 mg/dL Normal 8.4-10.2 [facility] Comment on above: Performed By: #### T JEFFREY, CMP, LIPID #### [facility] [address] [place] [address] Efraín Jane Chloride [Moles/Vol] 103 mmol/L Normal 98-107 [facility] Comment on above: Performed By: #### T JEFFREY CMP, LIPID #### [facility] [address] [place] [address] Efraín Jane CO2 [Moles/Vol] 27.7 mmol/L Normal 22.0-30.0 [facility] Comment on above: Performed By: #### T JEFFREY, CMP, LIPID #### [facility] [address] [place] [address] Efraín Jane Creatinine [Mass/Vol] 1.15 mg/dL Normal 0.66-1.25 [facility] Comment on above: Performed By: #### T JEFFREY CMP, LIPID #### [facility] [address] [place] [address] Efraín Jane EGFR-AF TUNISIAN >60 Normal >=60 [facility] Comment on above: Performed By: #### T JEFFREY, CMP, LIPID #### [facility] [address] [place] [address] Efraín Ajne EGFR-NON AF TUNISIAN >60 Normal >=60 [facility] Comment on above: Performed By: #### T JEFFREY, CMP, LIPID #### [facility] [address] [place] [address] Efraín Jane Globulin (S) [Mass/Vol] 4.2 g/dL Normal [facility] Comment on above: Performed By: #### T SH, CMP, LIPID #### [facility] [address] [place] [address] Efraín Jane Glucose [Mass/Vol] 86 mg/dL Normal 74-106 [facility] Comment on above: Performed By: #### T JEFFREY CMP, LIPID #### [facility] [address] [place] [address] Efraín Jaen Potassium [Moles/Vol] 3.7 mmol/L Normal 3.4-5.0 [facility] Comment on above: Performed By: #### T JEFFREY CMP, LIPID #### [facility] [address] [place] [address] Efraín Jane Protein [Mass/Vol] 8.5 g/dL Critically high 6.1-8.2 [facility] Comment on above: Performed By: #### T JEFFREY CMP, LIPID #### [facility] [address] [place] [address] Efraín Jane Sodium [Moles/Vol] 141 mmol/L Normal 137-145 [facility] Comment on above: Performed By: #### T JEFFREY CMP, LIPID #### [facility] [address] [place] [address] Efraín Jane Urea nitrogen [Mass/Vol] 16.0 mg/dL Normal 9.0-20.0 [facility] Comment on above: Performed By: #### T JEFFREY CMP, LIPID #### [facility] [address] [place] [address] Efraín Jane Urea nitrogen/Creatinine [Mass ratio] 13.9 mg/mg Normal [facility] Comment on above: Performed By: #### T JEFFREY CMP, LIPID #### [facility] [address] [place] [address] Efraín Jane TSHon 03-16-2021 TSH 0.650 uIU/mL Normal 0.470-4.680 [facility] Comment on above: Performed By: #### T JEFFREY CMP, LIPID #### [facility] [address] [place] [address] Efraín Jane TSH RANGE SEE BELOW Normal [facility] Comment on above: Result Comment: <0.3 4 UIU/ml HYPERTHYROID 0.34-5.60 UIU/ml EUTHYROID >5.60 UIU/ml HYPOTHYROID Performed By: #### T SH, CMP, LIPID #### [facility] [address] [place] [address] Efraín Jane UA RANDOMon 03-16-2021 Bilirubin Ql (U) Negative Normal NEGATIVE [facility] Comment on above: Performed By: #### U A #### [facility] [address] [place] [address] Efraín Jane Clarity (U) CLEAR Normal CLEAR [facility] Comment on above: Performed By: #### U A #### [facility] [address] [place] [address] Efraín Jane Color (U) YELLOW Normal YELLOW [facility] Comment on above: Performed By: #### U A #### [facility] [address] [place] [address] Efraín Jane Glucose Ql (U) Negative Normal NEGATIVE [facility] Comment on above: Performed By: #### U A #### [facility] [address] [place] [address] Efraín Jane Hemoglobin Ql (U) TRACE-LYSED Abnormal NEGATIVE [facility] Comment on above: Performed By: #### U A #### [facility] [address] [place] [address] Efraín Jane Ketones Ql (U) TRACE Abnormal NEGATIVE [facility] Comment on above: Performed By: #### U A #### [facility] [address] [place] [address] Efraín Jane LEUKOCYTES Negative Normal NEGATIVE [facility] Comment on above: Performed By: #### U A #### [facility] [address] [place] [address] Efraín Jane Nitrite Ql (U) Negative Normal NEGATIVE [facility] Comment on above: Performed By: #### U A #### [facility] [address] [place] [address] Efraín Jane pH (U) 6.0 [pH] Normal 5-9 [facility] Comment on above: Performed By: #### U A #### [facility] [address] [place], [place] [id number] Efraín Lara SPEC GRAVITY >=1.030 Abnormal 1.005-<=1.025 [facility] Comment on above: Performed By: #### U A #### [facility] [address] [address] Efraín Lara UA PROTEIN Negative Normal NEGATIVE/ TRACE [facility] Comment on above: Performed By: #### U A #### [facility] [address] [id number] Efraín Lara Urobilinogen Qn (U) 0.2 {[place]'U}/dL Normal 0.2 - 1. 0 [facility] Comment on above: Performed By: #### U A #### [facility] [address] [place] [address] Efraín Lara Release of Informationon Release of Information [phone] [id number] [facility] Coding Summaryon 01-18-2019 Coding Summary CODING DATE: 01/18/[address] [facility] STATUS: Home PAYOR: Richard Horan ADMIT DX: [...] A Barr Date Saved: 01/18/2019 12:05 pm [facility] Coding Summary CODING DATE: 01/18/[address] [facility] STATUS: Home PAYOR: Richard Cross APC DESCRIPTION [...] Barr' Date Saved: 01/18/2019 12:01 pm Normal [facility] CBC w/ Auto Diffon 9 Erythrocyte distribution width (RBC) [Ratio] 13.3 % Normal 11.5-15.0 [facility] Comment on above: Performed By: #### 1 [id number], [id number], [id number], 1013585, [id number], [id number] #### [facility] (DEFAULT) [address] [place] [address] Hematocrit (Bld) [Volume fraction] 45.2 % Normal 34.8-51.9 [facility] Comment on above: Performed By: #### 1 [id number], [id number], 4402111, 6042370, 824999910, [id number] #### [facility] (DEFAULT) [address] [place] [address] Hemoglobin (Bld) [Mass/Vol] 15.8 g/dL Normal 11.8-17.7 [facility] Comment on above: Performed By: #### 1 [id number], [id number], 8796961, 4903266, 230835101, [id number] #### [facility] (DEFAULT) [address] [place] [place] [address] Man Diff? Manual Normal [facility] Comment on above: Performed By: #### 1 [id number], [id number], 8749696, 6739496, [id number], [id number] #### [facility] (DEFAULT) [address] [place] [address] MCH (RBC) [Entitic mass] 28 pg Normal 24-34 [facility] Comment on above: Performed By: #### 1 [id number], [id number], 1536033, 8262738, [id number], [id number] #### [facility] (DEFAULT) [address] [place] [place] [address] MCHC (RBC) [Mass/Vol] 35 g/dL Normal 26-37 [facility] Comment on above: Performed By: #### 1 [id number], [id number], 2275105, 5237414, 438894478, [id number] #### [facility] (DEFAULT) [address] [place] [address] MCV (RBC) [Entitic vol] 80 fL Low 81-100 [facility] Comment on above: Performed By: #### 1 [id number], [id number], 3665061, 9613456, 978653278, [id number] #### [facility] (DEFAULT) [address] [place] [address] Platelet mean volume (Bld) [Entitic vol] 9.1 fL Normal 6.3-10.2 [facility] Comment on above: Performed By: #### 1 [id number], [id number], 1968805, 2575421, 512233023, [id number] #### [facility] (DEFAULT) [address] [place] [address] Platelets (Bld) [#/Vol] 320 x10 Normal 138-427 [facility] Comment on above: Performed By: #### 1 [id number], [id number], 0082457, 7776422, 929827297, [id number] #### [facility] (DEFAULT) [address] [place] [address] RBC (Bld) [#/Vol] 5.68 x10 High 3.70-5.30 [facility] Comment on above: Performed By: #### 1 [id number], [id number], 8659415, 9201666, 430376921, [id number] #### [facility] (DEFAULT) [address] [place] [place] [address] 65288 WBC (Bld) [#/Vol] 28.5 x10 [facility] Comment on above: Performed By: #### 1 [id number], [id number], 5496218, 8545301, 434259631, [id number] #### [facility] (DEFAULT) [address] [place], [place] [id number] CMP Standardon 01-12-2019 eGFR Non AA >60 [facility] Comment on above: Performed By: #### 1 [id number], [id number], 7610150, 2311958, 308574088, [id number] #### [facility] (DEFAULT) [address] [place] [address] eGFR AA >60 [facility] Comment on above: Result Comment: Cattle Manager davida Kidney disease could be indicated at eGFRs of less than 60 ml/min/1.73m2. Kidney Failure is indicated at less than 15 ml/min/1.73m2 Performed By: #### 1 [id number], 0085623157, 6825104, 2260367, 812699835, [id number] #### [facility] (DEFAULT) [address] [place] [place] [address] 96428 Albumin [Mass/Vol] 4.9 g/dL Normal 3.5-5.0 [facility] Comment on above: Performed By: #### 1 [id number], 0821047858, 4971135, 2700405, 527042088, 5778274715 #### [facility] (DEFAULT) [address] [place] [address] 44637 Albumin/Globulin [Mass ratio] 1.2 {ratio} Low 1.4-2.6 [facility] Comment on above: Performed By: #### 1 [id number], 9463095179, 4817170, 8291697, 031843925, [id number] #### [facility] (DEFAULT) [address] [place] [place] [address] 61564 Alk Phos 75 IU/L Normal 32-91 [facility] Comment on above: Performed By: #### 1 [id number], 4577111083, 3836974, 7489625, 446982413, [id number] #### [facility] (DEFAULT) [address] [place] [place] [address] 18669 ALT/SGPT 37.0 IU/L Normal 17.0-63.0 [facility] Comment on above: Performed By: #### 1 [id number], 3777326983, 9557315, 8955842, 886947776, [id number] #### [facility] (DEFAULT) [address] [place] [place] [address] 52774 Anion gap [Moles/Vol] 8.0 mmol/L Normal 5.0-19.0 [facility] Comment on above: Performed By: #### 1 [id number], 9042299130, 3622825, 2181045, 785534984, 4234092350 #### [facility] (DEFAULT) [address] [place] [place] [address] 36682 AST/SGOT 24 IU/L Normal 15-41 [facility] Comment on above: Performed By: #### 1 [id number], 2364728497, 4495295, 6937273, 144747820, 7460432784 #### [facility] (DEFAULT) [address] [place] [place] [address] 89376 Bili Total <0.1 Low 0.3-1.2 [facility] Comment on above: Performed By: #### 1 [id number], 9787067682, 7578250, 1737146, 536301309, 7017586742 #### [facility] (DEFAULT) [address] [place] [place] [address] 01516 Calcium [Mass/Vol] 9.3 mg/dL Normal 8.9-10.3 [facility] Comment on above: Performed By: #### 1 [id number], 9025866715, 9429830, 4193944, 596805629, 6014582827 #### [facility] (DEFAULT) [address] [place] [place] [address] 36576 Chloride [Moles/Vol] 111 mmol/L Normal 101-111 [facility] Comment on above: Performed By: #### 1 [id number], 4612394572, 6800187, 3656091, 856007272, 0856890153 #### [facility] (DEFAULT) [address] [place] [place] [address] 24537 CO2 [Moles/Vol] 24 mmol/L Normal 21-32 [facility] Comment on above: Performed By: #### 1 [id number], 8512795602, 7907042, 5276424, 417882879, 7356434446 #### [facility] (DEFAULT) [address] [place] [address] Creatinine [Mass/Vol] 1.21 mg/dL Normal 0.90-1.30 [facility] Comment on above: Performed By: #### 1 [id number], 0536778068, 6831757, 2446341, 069789296, 2194623401 #### [facility] (DEFAULT) [address] [place] [address] 87542 Globulin (S) [Mass/Vol] 4.1 g/dL Normal 1.5-4.3 [facility] Comment on above: Performed By: #### 1 [id number], 9201786218, 2117579, 2539910, 879019724, 0153801339 #### [facility] (DEFAULT) [address] [place] [address] Glucose [Mass/Vol] 121.0 mg/dL High 74.0-118.0 [facility] Comment on above: Performed By: #### 1 376177875, 0407930474, 2812218, 5387393, 562598478, 5180145544 #### [facility] (DEFAULT) [address] [place] [place] [address] 49401 Osmolality [Osmolality] 279 mOsm/L [facility] Comment on above: Performed By: #### 1 [id number], 9816748127, 4800742, 6430925, 526339223, 0213847623 #### [facility] (DEFAULT) [address] [place] [address] 12356 Potassium [Moles/Vol] 4.3 mmol/L Normal 3.6-5.1 [facility] Comment on above: Performed By: #### 1 [id number], 2037674550, 4816639, 0448542, 726720242, 8006546381 #### [facility] (DEFAULT) [address] [place] [address] 40876 Protein [Mass/Vol] 9.0 g/dL High 6.5-8.1 [facility] Comment on above: Performed By: #### 1 285384070, 1260471899, 0780713, 2921515, 970334233, 9117343225 #### [facility] (DEFAULT) [address] [place] [address] 42350 Sodium [Moles/Vol] 139.0 mmol/L Normal 136.0-144.0 [facility] Comment on above: Performed By: #### 1 074639663, 9745389211, 8212359, 0019740, 034798945, 5910246601 #### [facility] (DEFAULT) [address] [place] [address] 79228 Urea nitrogen [Mass/Vol] 14 mg/dL Normal 8-26 [facility] Comment on above: Performed By: #### 1 [id number], 3627013047, 7645767, 5092962, 932609852, 4516950150 #### [facility] (DEFAULT) [address] [place] [address] 78479 Urea nitrogen/Creatinine [Mass ratio] 12.0 mg/mg Normal 4.6-16.2 [facility] Comment on above: Performed By: #### 1 [id number], 2906916631, 8564759, 1396290, 053226478, 8941395544 #### [facility] (DEFAULT) [address] [place] [address] 49204 ED Clinical Summaryon 2018 ED Clinical Summary [facility] - Emergency Department [address] [place] [address] 78879 ED Clinical Summary PERSON INFORMATION Name: PRAVEEN YOUSIF Age: 33 Years Sex: MALE : [birth year] MRN: Acct#: Visit Reason: Diarrhea; Emesis; VOMITING, NAUSEA Arrival: 01/12/19 10:49:00 Discharge: 01/12/19 13:40:00 LOS: 000 02:51 Check In: 01/12/19 10:49:00 Checkout:01/12/19 13:40:00 Address: [place] [address] PCP: NOMI PAZ PROVIDER INFORMATION Provider Role [...] Follow-Up: With: Address: When: [facility] AM[facility] [address] [facility] [place] [phone] Business (1) Within 3 to 5 days [...] verbalizes understanding of instructions given Comment: Normal [facility] ED Note - Physicianon 2018 ED Note [...] 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 [...] [Verified on: 01/12/2019 14:06 EDT] Kole Dodd [facility] ED Note - Physician Patient: PRAVEEN YOUSIF Age: 33 years Sex: MALE : 86 Associated Diagnoses: None Author: Abebe Lopez PA-C Basic Information Time seen: Date & time 01/12/19 10:57:00. History source: Patient. Arrival mode: Private vehicle. History limitation: None. Abebe Lopez PA-C [facility] ED Note-Nursingon 01-12-2019 ED Note-Nursing [id number] 1.00OTGTIFF [facility] ED Note-Nursing Patient arrives by EMS after a episode of Nausea/Vomiting X3 and diarrhea raound 0930. Friends stated that he looked pale and diaphoretic and called EMS. Patient states no abdominal pain. Not nauseated at this time. [facility] ED Patient Education Noteon 01-12-2019 ED Patient [...] and low-calorie sports drinks. ? Eat bland, ihnc-dp-vcalws foods in small amounts as you are [...] and water are not available, use hand integration consultant. ? Make sure that all people in your household wash their hands well and often. ? Take afsm-fns-hilbvrw and prescription medicines only as told by [...] 06/13/2003 Document Revised: 02/04/2018 Document Reviewed: 02/27/2016 [employer] Patient Education ? 2019 [employer] Nausea and Vomiting, Adult Nausea is [...] and low-calorie sports drinks. ? Eat bland, owaz-is-rlbrra foods in small amounts as you are [...] and water are not available, use hand integration consultant. ? Make sure that all people in your household wash their hands well and often. ? Take mqop-yhu-nnyzxjo and prescription medicines only as told by [...] 06/23/2006 Document Revised: 11/25/2016 Document Reviewed: 02/27/2016 [employer] Patient Education ? 2019 [employer]. Normal [facility] ED Patient Summaryon 019 ED Patient Summary [facility] - Emergency Department [address] [place], [place] [id number] PATIENT DISCHARGE INSTRUCTIONS Patient Information Name: PRAVEEN YOUSIF Age: 33 Years Date of : [birth year] Reason For Visit: Diarrhea; Emesis; VOMITING, NAUSEA Arrival Time: 01/12/19 10:49:00 Primary Care Physician: NOMI PAZ Attending Physician: James Ramos MD Comment: Visit Diagnosis: Diagnoses This Visit Diarrhea ([id number]) Diarrhea (R19.7) Emesis ([id number]) Leukocytosis (D72.829) Lightheadedness (R42) Nausea and vomiting (R11.2) Prescription Information: If you have been given a prescription for narcotics, seek immediate medical attention if you have any difficulty breathing or any sudden status changes such as confusion and sleepiness. If you or anyone you know is experiencing suicidal thoughts, mental health, alcohol and/or drug addiction problems; contact the [facility] 27/01 Crisis Hotline -Text 4HCLK to 423413. If you received any narcotics, sedation, or [...] legal documents With: Address: When: NOMI PAZ [address] [place] [address] [place] [phone] Business (1) Within 3 to 5 days [...] and treatment you received today in the [facility] Emergency Department were for an urgent problem and are not intended as complete care. It is important for you to follow up with a doctor, nurse practitioner, or physician?s health care legal assistant for ongoing care. If your symptoms [...] so we can reach you if necessary. [facility] Emergency Department has provided you with a complete list of medications post discharge. Please inform your mailroom supervisor/provider of your visit and for further instruction [...] and low-calorie sports drinks. ? Eat bland, rrde-wo-qldefe foods in small amounts as you are [...] and water are not available, use hand integration consultant. ? Make sure that all people in your household wash their hands well and often. ? Take kysq-gat-imxydze and prescription medicines only as told by [...] 06/13/2003 Document Revised: 02/04/2018 Document Reviewed: 02/27/2016 [employer] Patient Education ? 2019 [employer] Nausea and Vomiting, Adult Nausea is [...] and low-calorie sports drinks. ? Eat bland, wexo-mq-yfvfwy foods in small amounts as you are [...] and water are not available, use hand integration consultant. ? Make sure that all people in your household wash their hands well and often. ? Take rovr-wrn-ibigphq and prescription medicines only as told by [...] 06/23/2006 Document Revised: 11/25/2016 Document Reviewed: 02/27/2016 [employer] Patient Education ? 2019 [employer] Viruses or Bacteria What?s got you [...] for Disease Control and Prevention March 2014 [facility] Extra Redon 07-09-2019 Tube Collected Yes [facility] Comment on above: Performed By: #### 1 [id number], 3978489004, 1245690, 0822757, 673085633, 5323059570 #### [facility] (DEFAULT) [address] [place] [address] 79565 Manual Differential 3on 07-0 .Morphology? Normal [facility] Comment on above: Order Comment: Order added by Discern. Performed By: #### 1 [id number], 8444861616, 8132918, 5990463, 340036349, 9614147129 #### [facility] (DEFAULT) [address] [place] [address] 54173 Band form neutrophils/100 WBC (Bld) 9 % High <=6 [facility] Comment on above: Order Comment: Order added by Chaka. Performed By: #### 1 [id number], 1135113088, 3836405, 1698457, 029627457, 5561372491 #### [facility] (DEFAULT) [address] [place] [place] [address] 86053 Basophil Man 0 % Normal <=1 [facility] Comment on above: Order Comment: Order added by Discern. Performed By: #### 1 [id number], 1554847188, 4718571, 8126108, 852825356, 3666184937 #### [facility] (DEFAULT) [address] [place] [address] 33890 Eosinophils/100 WBC (Bld) 0 % Normal <=5 [facility] Comment on above: Order Comment: Order added by Discern. Performed By: #### 1 [id number], 4809089692, 0560521, 1840885, 769180043, 2650978110 #### [facility] (DEFAULT) [address] [place] [address] 62127 Lymphocytes/100 WBC (Bld) 7 % Low 14-48 [facility] Comment on above: Order Comment: Order added by Chaka. Performed By: #### 1 477159796, 1137995911, 2583150, 6249783, 459287601, 4976310464 #### [facility] (DEFAULT) [address] [place] [address] Monocyte Man 14 % High 1-11 [facility] Comment on above: Order Comment: Order added by Chaka. Performed By: #### 1 [id number], 0913766724, 2153538, 5938447, 303904121, 4639150686 #### [facility] (DEFAULT) [address] [place] [place] [address] 67815 React Lymph Man 1 % [facility] Comment on above: Order Comment: Order added by Chaka. Performed By: #### 1 122996804, 9776037243, 1366918, 8313909, 187518996, 8004662207 #### [facility] (DEFAULT) [address] [place] [place] [address] 94328 Segs Man 69 % Normal 50-70 [facility] Comment on above: Order Comment: Order added by Chaka. Performed By: #### 1 238993131, 2382231275, 7524373, 4115531, 253355706, 3030346886 #### [facility] (DEFAULT) [address] [place] [place] [address] 29930 Telemetry Stripson 9 Telemetry Strips [id number] [id number] [facility] Troponin Ion 01-12-2019 Troponin I.cardiac [Mass/Vol] ng/mL Normal <=0.03 [facility] Comment on above: Performed By: #### 6 [id number] #### [facility] (DEFAULT) [address] [place] [address] 31293 Troponin I.cardiac [Mass/Vol] ng/mL Normal <=0.03 [facility] Comment on above: Performed By: #### 1 [id number], 1525206881, 2829633, 7593725, 031251256, 5008577152 #### [facility] (DEFAULT) [address] [place] [address] UA Ainly5jj 01-12-2019 RBC (U) [#/Vol] None Seen [facility] Comment on above: Order Comment: Urina lysis Microscopic order added on by Media Chaperone Expert Rules system. Performed By: #### 5 [id number], [id number] ####[facility] (DEFAULT)[address] [place] [address] UA Bacteria Rare Normal [facility] Comment on above: Order Comment: Urina lysis Microscopic order added on by Media Chaperone Expert Rules system. Performed By: #### 5 5256603, [id number] ####[facility] (DEFAULT)[address] [place] [address] UA CA Ox Crystal 4+ [facility] Comment on above: Order Comment: Urina lysis Microscopic order added on by Media Chaperone Expert Rules system. Result Comment: [place] hydrate form of Calcium oxalate crystals Performed By: #### 5 [id number], [id number] ####[facility] (DEFAULT)[address] [place] [address] UA WBC 0-2 [facility] Comment on above: Order Comment: Urina lysis Microscopic order added on by Media Chaperone Expert Rules system. Performed By: #### 5 [id number], [id number] ####[facility] (DEFAULT)[address] [place] [address] UA w Culture if Ind Standard on 01-12-2019 Breakpoint UA [facility] Comment on above: Performed By: #### 5 3401179, [id number] ####[facility] (DEFAULT)[address] [place] [address] Color (U) YELLOW [facility] Comment on above: Performed By: #### 5 2400685, 1158508797 ####[facility] (DEFAULT)[address] [place] [address] Culture? No [facility] Comment on above: Performed By: #### 5 [id number], [id number] ####[facility] (DEFAULT)[address] [place] [address] Glucose (U) [Mass/Vol] Negative [facility] Comment on above: Performed By: #### 5 7223384, [id number] ####[facility] (DEFAULT)[address] [place] [address] 47140 Ketones Ql (U) Negative [facility] Comment on above: Performed By: #### 5 6406157, [id number] ####[facility] (DEFAULT)[address] [place] [address] 14223 Micro? Indicated [facility] Comment on above: Performed By: #### 5 9670954, [id number] ####[facility] (DEFAULT)[address] [place] [address] 00982 UA Bilirubin Negative Normal [facility] Comment on above: Performed By: #### 5 0544022, [id number] ####[facility] (DEFAULT)[address] [place] [address] 32305 UA Blood Negative Normal NEGATIVE [facility] Comment on above: Performed By: #### 5 6163117, [id number] ####[facility] (DEFAULT)[address] [place] [address] 30963 UA Clarity SL CLOUDY Abnormal CLEAR [facility] Comment on above: Performed By: #### 5 3650649, [id number] ####[facility] (DEFAULT)[address] [place] [address] 78016 UA Leuk Est Negative Normal NEGATIVE [facility] Comment on above: Performed By: #### 5 6847655, [id number] ####[facility] (DEFAULT)[address] [place] [address] 28916 UA Nitrite Negative Normal NEGATIVE [facility] Comment on above: Performed By: #### 5 9847917, [id number] ####[facility] (DEFAULT)[address] [place] [address] 70392 UA pH 5.5 5-8 [facility] Comment on above: Performed By: #### 5 0474131, [id number] ####[facility] (DEFAULT)[address] [place] [address] 30796 UA Protein TRACE Abnormal NEGATIVE [facility] Comment on above: Performed By: #### 5 3458578, [id number] ####[facility] (DEFAULT)[address] [place] [address] UA Spec Grav >=1.030 1.001-1.035 [facility] Comment on above: Performed By: #### 5 7236857, [id number] ####[facility] (DEFAULT)[address] [place] [address] UA Urobilinogen 0.2 mg/dL Normal 0.2-1.0 [facility] Comment on above: Performed By: #### 5 0639032, [id number] ####[facility] (DEFAULT)[address] [place] [address] Urine Source Clean Catch Normal [facility] Comment on above: Performed By: #### 5 7748370, [id number] ####[facility] (DEFAULT)[address] [place] [address] 48463 Vital Signs Date Time Vital Sign Value Performing Clinician Faci litkalpana 09-19-2022 14:41-0400 Body height 177.8 cm MD Nomi Paz Work Phone: [facility] 09-19-2022 14:41-0400 Body temperature 98.6 [degF] MD Nomi Paz Work Phone: [facility] 09-19-2022 14:41-0400 Body weight 106.59 kg MD Nomi Paz Work Phone: [facility] 09-19-2022 14:41-0400 Diastolic blood pressure 119 mm[Hg] MD Nomi Paz Work Phone: [facility] 09-19-2022 14:41-0400 Heart rate 99 /min MD Nomi Paz Work Phone: [facility] 09-19-2022 14:41-0400 Respiratory rate 18 /min MD Nomi Paz Work Phone: [facility] 09-19-2022 14:41-0400 SaO2% (BldA) [Mass fraction] 98 % MD Nomi Paz Work Phone: [facility] 09-19-2022 14:41-0400 Systolic blood pressure 171 mm[Hg] MD Nomi Paz Work Phone: [facility] 07-09-2022 19:55-0500 Diastolic blood pressure 99 mm[Hg] MD Nomi Paz Work Phone: [facility] 07-09-2022 19:55-0500 Heart rate 77 /min MD Nomi Paz Work Phone: [facility] 07-09-2022 19:55-0500 Respiratory rate 20 /min MD Nomi Paz Work Phone: [facility] 07-09-2022 19:55-0500 SaO2% (BldA) [Mass fraction] 99 % MD Nomi Paz Work Phone: [facility] 07-09-2022 19:55-0500 Systolic blood pressure 168 mm[Hg] MD Nomi Paz Work Phone: [facility] 07-09-2022 18:48-0500 Body height 180.34 cm MD Nomi Paz Work Phone: [facility] 07-09-2022 18:48-0500 Body temperature 97.2 [degF] MD Nomi Paz Work Phone: [facility] 07-09-2022 18:48-0500 Body weight 104.32 kg MD Nomi Paz Work Phone: [facility] Encounters Encounter Date Encounter Type Care Provider Facility Start: 09-10-2023 End: 09-10-2023 ambulatory Celeste Anglin Facility:[facility] Start: 09-19-2022 End: 09-19-2022 Emergency department patient visit Amalia Morales Facility:[facility] Start: 09-19-2022 End: 09-19-2022 Emergency department patient visit MD Nomi Paz Work Phone: [facility] Work Phone: Start: 07-09-2022 End: 07-09-2022 ambulatory MD Nomi Paz Work Phone: [facility] Work Phone: Start: 07-09-2022 End: 07-09-2022 Patient encounter procedure MD Nomi Paz Work Phone: [facility] [place] Work Phone: Start: 07-09-2022 End: 07-09-2022 Emergency department patient visit MD Nomi Paz Work Phone: [facility] Work Phone: Start: 02-14-2022 End: [...] Date Care Activity Detail Author Patient Education [facility] Work Phone: Patient referral [facility] Work Phone: Immunizations Immunization Date Immunization Notes Care Provider Fa cility 09-19-2022 tetanus toxoid, redu saud diphtheria toxoid, and acellular pertussis vaccine, adsorbed MD Nomi Paz Work Phone: [facility] Payers Date Payer Category Payer Self-pay [id number] 2022 Worker's Compensation [id number] 1986 Unknown [id number] 1986 Unknown [id number] 1986 Unknown [id number] 1959 Unknown [id number] Private Health Insurance [employer] [id number] Unknown [place] [id number] Unknown [id number] Unknown [id number] Social History Date Type Detail Facility Tobacco smoking stat us [facility] Unknown if ever smoked [facility] Work Phone: Start: 1985 Sex Assigned At Male [facility] Start: 07-09-2022 End: 09-19-2022 Tobacco smoking status NHIS Never smoked tobacco (finding) [facility] Hospital Discharge instructions 09-19-2022 Note Date & Type Note Facility 09-19-2022 Hospital Discharg e instructions Additional Instructions Keep wounds clean and dry Wash with soap and water daily apply antibiotic ointment 2-3 times a day May take rmmi-chq-graykld Tylenol and/or ibuprofen for discomfort Take the antibiotic Augmentin twice a day for 10 days take with food Follow-up with family doctor and/or [facility] for recheck Return to the ER for worsening redness swelling pain fever chills or any other concerns [facility] Work Phone: Clinical Note 06-09-2021 Note [...] by: DEJUAN JIN Date: 2021-06-09 20:22 [facility] note Note Date & Type Note Facility Evaluation note No assessment information availa [facility] Work Phone: Summary Purpose Family History No [...] section and content) DATE CREATED AUTHOR 09/13/2019 [facility] DATE CREATED AUTHOR AUTHOR'S ORGANIZ ATION 02/15/2022 [facility] DATE CREATED AUTHOR AUTHOR'S ORGANIZ ATION 09/14/2023 [facility] Goals (unrecognized section and content) Goals may [...] Paz MD Primary Care Provider Active MYRA Castillo-EPR Emergency Provider Active FOR RECORDS PERTAINING TO [...] BE BASED ON THE PRIMARY CLINICAL RECORDS. [facility]. provides no warranty or guarantee of the accuracy or completeness of information in this document.
== END 2024-05-14 08:16 | disposition home or self-care (01) ==
LOC: US 08:15
PROVIDERS: PCP Family Medicine; Visit Provider Family Medicine
DX: R10.11 Right upper quadrant pain (principal)
CPT/HCPCS: 76705

== ENCOUNTER 2024-05-31 12:33 | Outpatient (REF) | payer BC, SELFPAY ==
[2024-05-31 15:32] LABS: Internal Control Within Normal Limits; Occult Blood Negative
== END 2024-05-31 12:34 | disposition home or self-care (01) ==
LOC: LAB 12:33
PROVIDERS: PCP Family Medicine; Visit Provider Family Medicine
DX: Z00.00 Encounter for general adult medical examination without abnormal findings (principal)
CPT/HCPCS: G0328

== ENCOUNTER 2025-01-26 12:00 | Outpatient (OUT) | payer BC, SELFPAY | END 2025-01-26 12:01 | disposition home or self-care (01) | LOC: SLEEP 01-27 11:53 | PROVIDERS: PCP Family Medicine; Visit Provider Family Medicine | DX: G47.33 Obstructive sleep apnea (adult) (pediatric) (principal); R53.83 Other fatigue; I10 Essential (primary) hypertension | CPT/HCPCS: 95806 ==

== ENCOUNTER 2025-06-23 15:00 | Outpatient (OUT) | payer BC, SELFPAY ==
--- OUTSIDE RECORDS SUMMARY | 2025-06-10 09:15 | XMS_ITS ---
Author Organization The [facility] in [place] Address [address] [place] [address] Care Team Providers Care School Occupational Therapist Name Role Phone Kostas Paz Primary Care Provider REASON FOR VISIT wt loss Encounters Encounter Location Date Provider Diagnosis [facility] [address] [facility] [place] [address] 06/10/2025 Kostas Paz Plan Of Treatment No Information Progress Notes * Eduardo YOUSIF BDOB:[birth year] (40 yo M)Acc No.[id number]:06/10/2025 UNLOCKED PROGRESS NOTE Progress Note Patient: Eduardo MCHUGH :?Blake Paz (JORDYN), MDDOB:1985???Age: 40 Y???Sex:MaleDate:06/10/2025Phone:[phone]:[address] [place], [place] Subjective: * Chief Complaints: * 1 . Wt loss. * Medical History: Objective: * Vitals: Assessment: Plan: * Treatment: * * Electronic signature of Kostas Paz MD, [phone] on 06/23/2025 at 03:01 PM EST Sign off status: PendingVisit Status:?OFF CANC (OFFICE CANCEL) * Provider: Kiara Paz MD (TTC) Date: 1 08/11/2024 Generated for Printing/Faxing/eTransmitting on:?06/23/2025 03:01 PM EST
--- OUTSIDE RECORDS SUMMARY | 2025-06-14 05:30 | XMS_ITS ---
Author Organization The [facility] in [place] Address [address] [place] [address] Care Team Providers Care Check Airman Name Role Phone Kostas Paz Primary Care Provider Allergies No Known Allergies REASON FOR VISIT Weight loss- discuss Zepbound for sleep apnea Medications Medication SIG (Take, Route, Frequency, Duration) Notes Start Date End Date Status Zepbound 2.5 MG/0.5ML 2.5 Subcutaneous weekly Dx - Sleep apnea nd hypertension 5ActiveLisinopril 40 MG1 tablet Orally Once a day; Duration: 7 days ActiveFLUoxetine HCl 20 MG1 capsule Orally Once a day; Duration: 90 daysActive clonazePAM 0.5 MG 1 tablet Oral Once a day; Duration: 30 days As needed Active Social History Tobacco Use: Social History Observation Description Date Details (start date - stop date) Never Smoker NA - NA Tobacco Use/Smoking Question Answer Notes Patient is a nonsmoker Problems Problem Type SNOMED Code ICD Code Onset Dates Problem Status W/U Status Risk Notes Problem Morbid obesity (disorder) (38231 6002) Morbid (severe) obesity due to excess calories (E66.01) Activeconfirmed Vital Signs Weight 271.0 lbs 06/14/2025 Height 70 in 06/14/2025 Blood pressure systolic 148 mm Hg 06/14/20 25 Blood pressure diastolic 98 mm Hg 025 BMI 38.88 kg/m2 06/14/2025 Encounters Encounter Location Date Provider Diagnosis [facility] [address] [place] [facility] [place] [address] 06/14/2025 Kostas Paz Morbid (severe) obesity due to excess calories E66.01 Assessments Encounter Date Diagnosis (ICD Code) Assessment Notes Treatment Notes Treatment Clinical Notes Section Notes 06/14/2025 Morbid (severe) obesity due to e xcess calories (ICD-10 - E66.01) 06/14/2025OtherTake NSAIDs as needed for pain. Discussed avoiding headache triggers and improiving diet and sleep habits to prevent headaches. Plan Of Treatment Medication Medication Name Sig Start Date Stop Date Notes Zepbound 2.5 MG/0.5ML 2.5 Subcutaneous weekly 06/14/20 25 Treatment Notes Assessment Notes Other Take NSAIDs as neede d for pain. Discussed avoiding headache triggers and improiving diet and sleep habits to prevent headaches. Progress Notes * NICA Eduardo BDOB:[birth year] (40 yo M)Acc No.[id number]:06/14/2025 Progress Note Patient: Eduardo MCHUGH :?Blake MartelMelyssa Paz ([facility]), MDDOB:1985???Age: 40 Y???Sex:MaleDate:06/14/2025Phone:[phone]:[address], [place], [place]Lxykb In:10:29 AM ESTCheck Out:11:26 AM EST Subjective: * Chief Complaints: * W eight loss- discuss Zepbound for sleep apnea * HPI: ???General:?Dsleep apne a- using machine - still needs weight loss willing to trythe zepbound Dx andl sith hypertenson - medically benifistal to lose weight weght is up despite trial of dieeing - working on increasing the exercise part. ???Headache:?The patient complains of?headache.?Patient describes headache as?-.?Patient believes headaches are related to injury?no.?Suspected triggers?-.?Symptoms have been present for?1-2 days.?The symptoms are?moderate.?Symptomatic treatment has included?NSAIDs.?Associated symptoms include?neck pain, diziness, fatigue. * ROS: ???General/Constitutional:?Lightheadedness?denies.?Change in appetite?denies.?Weight Change?denies.?Cardiovascular:?Irregular Heartbeat?denies.?Swelling in hands/feet denies.?Respiratory:?Shortness of breath?denies.?Shortness of breath at res t?denies.?Wheezing?denies.?Neurologic:?Comments?See HPI for details.? * Active Problem List F41.9 Anxiety Modified On:08/21/2023/U Status:inlxbiqrrB83Gnwsgethkvzm Modified On:08/21/2023 Status:ntsfdgwtoC50.83Snoring Modified On:09/17/2023 Status:aclcdsdifU04.3Sebaceous cyst Modified On:02/18/2024U Status:dmpooaocdE32.00Well adult Modified On:03/24/2024U Status:urmarbftzP32.00Hypercholesterolemia Modified On:03/24/2024 Status:gjnqwfqoqW25.90Acute sinusitis Modified On:08/10/2024 Status:gzzjbuirfM24.9Abdominal pain Modified On:01/10/2025U Status:ujfebiyrjB12.01Morbid (severe) obesity due to excess calories Modified On:06/14/2025U Status:confirmed * Medical History: * Surgical History: E ar pinning * Hospitalization/Major Diagno stic Procedure: d enies * Family History: F ather: alive. M other: alive. B rother(s): alive. S ister(s): alive. S on(s): alive. D tan(s): alive. 1 brother(s) , 1 sister(s) - healthy. 1 son(s) , 1 daughter(s) - healthy. . * Social History: ???Tobacco Use:?Tobacco Use/Smoking?Patient is a?nonsmoker * Medications: T akingclonazePAM 0.5 MG Tablet 1 tablet Oral Once a day As neededFLUoxetine HCl 20 MG Capsule 1 capsule Orally Once a day Lisinopril 40 MG Tablet 1 tablet Orally Once a day Taking clonazePAM 0.5 MG Tablet 1 tablet Oral Once a day As neededTaking FLUoxetine HCl 20 MG Capsule 1 capsule Orally Once a day Taking Lisinopril 40 MG Tablet 1 tablet Orally Once a day DiscontinuedCefdinir 300 MG Capsule 2 capsule Orally once a day Doxycycline Monohydrate 100 MG Tablet 1 tablet Orally bid , Notes to Pharmacist: Needs both doxy and cefdinirMedication List reviewed and reconciled with the patientDiscontinued Cefdinir 300 MG Capsule 2 capsule Orally once a day Discontinued Doxycycline Monohydrate 100 MG Tablet 1 tablet Orally bid , Notes to Pharmacist: Needs both doxy and cefdinirMedication List reviewed and reconciled with the patient * Allergies: N .K.D.A.no[Allergies Verified] Objective: * Vitals: W t:271.0lbs, Ht: 70 in, BP:148/98mm Hg, BMI:38.88Index, Ht-cm: 177.8 cm, Wt-k.92 kg. * Examination: ???General Examination: ?GENERAL APPEARANCE:? in no acute distress, well developed,well nourished.?LUNGS:? clear to auscultation bilaterally.?CARDIO:? S1, S2 normal, no murmurs, rubs, gallops.?EXTREMITIES:? no clubbing, cyanosis, or edema.?NEUROLOGIC:? alert, oriented to time, place, & person. ??? Assessment: * Assessment: 1.?Morbid (severe) obesity due to excess calories - E66.01 (Primary)??? Plan: * Treatment: Start Zepbound Solution Auto-injector, 2.5 MG/0.5ML, 2.5, Subcutaneous, weekly Dx - Sleep apnea nd hypertension, 1, Refills 11.??2.?Others? Notes:Take NSAIDs as needed for pain. Discussed avoiding headache triggers and improiving diet and sleep habits to prevent headaches.?? * Procedure Codes: * Preventive Medicine: ??Screenings/Counseling:?BMI ACTION PLAN?Above Normal BMI Follow-up?Dietary management education, guidance, and counseling * * Sign off status: CompletedVisit Status:?CHK (Check Out) true * Provider: Kiara Paz (TTC)MD Date: 1 08/15/2024 Generated for Printing/Faxing/eTransmitting on:?06/23/2025 03:02 PM EST History and Physical Notes * HPI (History of Present Illness) CategorySub-CategoryDetailNotesCategory NotesHeadacheThe patient complains of headachePatient describes headache as-Patient believes headaches are related to injurynoSuspected triggers-Symptoms have been present for1-2 daysThe symptoms aremoderateSymptomatic treatment has includedNSAIDsAssociated symptoms include neck pain, diziness, fatigueGeneral Dsleep apne a- using machine - still needs weight loss willing to trythe zepbound Dx andl sith hypertenson - medically benifistal to lose weight weght is up despite trial of dieeing - working on increasing the exercise part Examination CategorySub-CategoryDetailNotesCategory NotesGeneral ExaminationGENERAL APPEARANCE:in no acute distress, well developed, well nourishedCARDIO:S1, S2 normal, no murmurs, rubs, gallopsLUNGS:clear to auscultation bilaterally NEUROLOGIC:alert, oriented to time, place, & personEXTREMITIES:no clubbing, cyanosis, or edema
--- OUTSIDE RECORDS SUMMARY | 2025-06-23 15:02 | XMS_ITS | Clinical Summary ---
Author Organization [facility] Address [address] [place] [address] Care Team Providers Care Machine Stitcher Name Role Phone Unavailable Primary Care Provider Unavailabl e Social History Tobacco UseTypesPacks/DayYears UsedDateSmoking Tobacco: Never AssessedSex and Gender InformationValueDate RecordedSex Assigned at BirthNot on fileLegal Sex Male09/18/2022 6:58 PM EDTGender IdentityNot on fileSexual OrientationNot on file Last Filed Vital Signs Vital SignReadingTime TakenCommentsBlood Xflpdbux015/7805 12:00 PM EDT Pulse--Temperature--Respiratory Rate--Oxygen Saturation--Inhaled Oxygen Concentration--Zmlbpc557 kg (248 lb 6.4 oz)11/28/2018 12:00 PM JVNDbyjny020.9 cm (6')11/28/2018 12:00 PM EDTBody Mass Index33.69011/28/2018 12:00 PM EDT Plan of Treatment Not on file
--- OUTSIDE RECORDS SUMMARY | 2025-06-23 15:02 | XMS_ITS | Patient Health Record ---
Author Organization The [facility] in [place] Address [address] [place] [address] Care Team Providers Care Tower Truck Driver Name Role Phone Kostas Paz Primary Care Provider Allergies No Known Allergies Reason For Referral No Information Medications Medication SIG (Take, Route, Frequency, Duration) Notes Start Date End Date Status Wegovy 0.25 MG/0.5ML 0.25 mg Subcutaneous weely; Duration: 30 days 5ActiveclonazePAM 0.5 MG 1 tablet Oral Once a day; Duration: 30 days As needed ActiveZepbound 2.5 MG/0.5ML 2.5 Subcutaneous weekly Dx - Sleep apnea nd hypertension 5ActiveLisinopril 40 MG1 tablet Orally Once a day; Duration: 7 days ActiveFLUoxetine HCl 20 MG1 capsule Orally Once a day; Duration: 90 daysActive Social History Tobacco Use: Social History Observation Description Date Details (start date - stop date) Never Smoker NA - NA Tobacco Use/Smoking Question Answer Notes Patient is a nonsmoker Alcohol Screen (Audit-C) Question Answer Notes Did you have a drink containing alcohol in the p ast year? No Wrgott2SkgrgridtuzzkhZgpdvoccTZXJZ-Q (Standard) Question Answer Notes Did you have a drink containing alcohol in the p ast year? No Wwhgcr0CtkgfaerlhvykcSknsooht Problems Problem Type SNOMED Code ICD Code Onset Dates Problem Status W/U Status Risk Notes Problem Morbid obesity (disorder) (80752 6002) Morbid (severe) obesity due to excess calories (E66.01) ActiveconfirmedProblemSebaceous cyst (409291777)Sebaceous cyst (L72.3)Active confirmedProblemSnoring (63121694)Snoring (R06.83)ActiveconfirmedProblem Abdominal pain (25854823)Abdominal pain (R10.9)ActiveconfirmedProblem Hypertension (45973416)Hypertension (I10)ActiveconfirmedProblemAnxiety (44476563)Anxiety (F41.9)ActiveconfirmedProblemAcute sinusitis (58164657)Acute sinusitis (J01.90)ActiveconfirmedProblemWell adult (853735557)Well adult (Z00.00)ActiveconfirmedProblemHypercholesterolemia (14334074) Hypercholesterolemia (E78.00)Activeconfirmed Vital Signs Temperature 98.2 degrees Fahrenheit 08/10/2024 Blood pressure mzwdetpcv74 mm Hg06/14/20257877Vlfwsb07 in06/14/2025lood pressure btdbiixe881 mm Hg06/14/20253001Vlvjvd136.0 lbs108/15/2024BMI38.88 kg/m206/14/2025 Procedures Procedure Date Ordered Date Performed Result Body Sit e Sleep study - Diagnostic Polysonogram 01/10/2025 N/A Encounters Encounter Location Date Provider Diagnosis [address] [address] 08/10/2024 Kostas Hoy Acute sinusitis J01. [address] [address] 06/14/2025 Kostas Hoy Morbid (severe) obes ity due to excess calories E66.01 [facility] [address] [place] [address] 01/10/2025 Kostas Hoy Hypertension I10 ; Abdominal pain R10.9 and Fatigue R53.83 [facility] [address] [place] [address] 06/16/2025 Kostas Hoy [facility] [place] [address] [facility] [place] [address]/08/2025[facility] [facility] [place] [place] [address]/02/2025Doug [facility] [place] [address]/Doug HoyFatigue R53.83[facility] [place] [address] Kostas Paz Assessments Encounter Date Diagnosis (ICD Code) Assessment Notes Treatment Notes Treatment Clinical Notes Section Notes 08/10/2024 Acute sinusitis (ICD-10 - J01.90 ) 01/10/2025Hypertension (ICD-10 - I10)01/10/2025bdominal pain (ICD-10 - R10.9) 06/14/2025Morbid (severe) obesity due to excess calories (ICD-10 - E66.01) 04/18/2025Fatigue (ICD-10 - R53.83)01/10/2025Fatigue (ICD-10 - R53.83)06/14/2025 OtherTake NSAIDs as needed for pain. Discussed avoiding headache triggers and improiving diet and sleep habits to prevent headaches. Plan Of Treatment Pending Test Test Name Order Date CMP (COMPLETE METABOLIC PANEL) 4 CT Abdomen and Pelvis w/contrast * 05/27 FECAL OCCULT BLOOD 03/19/2024 Sleep study - Diagnostic Polysonogram Sleep study - Diagnostic Polysonogram CARDIO IQ(R) LP PLA2 (PLAC[R]) 4 LIPID PROFILE 03/24/2024 CT ABD and PELV W CON 01/10/2025 US ABD 05/10/2024 THYROID PANEL (T4/TSH/FREE T3) 4 PSA, SCREENING 03/19/2024 Insurance Providers Payer Name Payer Address Payer Phone Subscriber Number Group Number Insured Name Patient Relationship to Insured Coverage Start Date Coverage End Date [employer] PPO PLUS LOCAL PLAN [address] [place] [address] [id number] Naila James - patient is the insured Medical (General) History Medical History History ICD Code Anxiety F41.9 Hypertension I10 Surgical History Surgery Date(Month/Year) Ear pinning Hospitalization History Reason Date(Month/Year) denies
== END 2025-06-23 15:01 | disposition home or self-care (01) ==
LOC: FHNEUROLOG 15:00
PROVIDERS: PCP Family Medicine; Visit Provider Psychiatry & Neurology Neurology
DX: G47.33 Obstructive sleep apnea (adult) (pediatric) (principal)
CPT/HCPCS: G0463